=== PATIENT | female | born 1960 | race Caucasian/White ===

== ENCOUNTER 2020-08-01 17:22 | Emergency (ER) | payer MEDICARE, MEDICAID, SELFPAY ==
--- NOTE | ~2020-08-01 | CT_ITS ---
EXAMINATION: CT abdomen pelvis wo con DATE: 08/01/2020 18:55 INDICATION: Left flank pain. TECHNIQUE: Computed tomography (CT) of the abdomen and pelvis was performed without intravenous contr ast. Automated exposure control and iterative reconstruction technique were employed. The dose-length product was 222.74 mGy-cm. COMPARISON: CT abdomen and pelvis 09/08/2012 FINDINGS: The visualized portions of the lung bases demonstrate mild atelectasis. No pleural effusion . The heart size is normal. No pericardial effusion. The liver, gallbladder, spleen, pancreas, adrena l glands, and right kidney are normal. There is mild left hydronephrosis and hydroureter. There is a 2 mm stone in distal left ureter. There are no dilated loops of bowel. The appendix is normal. There are no pathologically enlarged lymph nodes. There is no free intraperitoneal fluid. There is moderate lumbar spondylosis. There is a benign bone island in L5 vertebral body. IMPRESSION: 1. 2 mm stone in distal left ureter with mild left hydronephrosis and hydroureter. Reviewed, dictated and finalized at location A. IMPRESSION: 1. 2 mm stone in distal left ureter with mild left hydronephrosis and hydrouret er.
[2020-08-01 17:23] VITALS: BP 120/76; PULSE 65; RESP 20; TEMP 36.2; O2SAT 99
[2020-08-01 17:57] LABS: Basophils Absolute Auto 0.1 K/mm3 (0.0-0.1); Basophils Percent Auto 0.5 % (0.2-1.2); Eosinophils Percent Auto 0.3 % (0-4.4); Hemoglobin 11.5 g/dL (12.0-15.0); Immature Granulocyte Absolute 0.03 K/mm3 (0.00-0.031); Immature Granulocyte Percent A 0.3 % (0-0.5); Lymphocytes Absolute Auto 2.67 K/mm3 (0.9-3.2); Lymphocytes Percent Auto 27.6 % (18.3-44.2); Mean Corpuscular HGB Conc 32.9 g/dl (32-36); Mean Corpuscular Hemoglobin 32.5 pg (26-34); Mean Corpuscular Volume 98.9 fl (80-100); Mean Platelet Volume 9.6 fl (7.4-10.4); Monocytes Absolute Auto 0.6 K/mm3 (0.1-0.6); Monocytes Percent Auto 6.1 % (2.6-8.5); Neutrophils Absolute Auto 6.3 K/mm3 (1.3-6.7); Neutrophils Percent Auto 65.2 % (45.5-73.1); Platelet Count Result 222 k/mm3 (150-375); Red Blood Count 3.54 M/mm3 (4.2-5.4); White Blood Count 9.7 K/mm3 (4.5-10.0)
[2020-08-01 18:02] LABS: Add Urine Microscopic? YES; Appearance Urine Clear (Clear); Bacteria Urine Trace /hpf; Bilirubin Urine Negative (Negative); Blood Urine 1+ (Negative); Color Urine Straw (Yellow); Glucose Urine UA Negative (Negative); Ketones Urine Trace mg/dL (Negative); Leukocyte Esterase Ur 3+ LEU/UL (Negative); Mucus Urine Rare /lpf; Nitrate Urine Negative (Negative); Protein Urine Negative (Negative); Squamous Epithelial Cell Urine Rare /hpf (Few); Urobilinogen Urine Negative mg/dL (<2.0)
[2020-08-01 18:03] LABS: Specific Grav Ur 1.004 (1.001-1.035)
[2020-08-01 18:16] LABS: Anion Gap 1 mmol/L (8-16); Blood Urea Nitrogen 12 mg/dL (7-17); Carbon Dioxide 27 mmol/L (22-30); Chloride 102 mmol/L (98-107); Estimated CRCL calculation 45 ml/min; Estimated Glomerular Filt Rate 51; Glucose 94 mg/dL (65-105); Potassium 3.1 mmol/L (3.4-5.0); Sodium 130 mmol/L (137-145)
--- NOTE | 2020-08-01 18:51 | ED.FEMALEGU ---
HPI - Female Genitourinary General Chief complaint: Urogenital-Female Stated complaint: unavle to urinate, nausea, back pain Time Seen by Provider: 08/01/20 17:36 Source: patient Mode of arrival: ambulatory Limitations: no limitations History of Present Illness HPI Narrative: This is a 60-year-old female that presents to the emergency department for difficulty urinating today. Reports she feels like she can only get out a small amount of time. Also reports associated left flank pain that radiates to the abdomen. Denies fever, vomiting, or hematuria. Related Data Allergies Allergy/AdvReac Type Severity Reaction Status Date / Time No Known Allergies Allergy Mild Verified 09/29/19 12:29 Review of Systems Review of Systems: Narrative: CONSTITUTIONAL: Denies fever GASTROINTESTINAL: Reports abdominal pain. Denies nausea, vomiting, or diarrhea. GENITOURINARY: Denies dysuria or hematuria. All systems reviewed & are unremarkable except as noted in HPI and below PMFSH Past Medical History Medical History (Updated 08/01/20 @ 19:44 by Radha Golden PA-C) History of rheumatoid arthritis Family History Family History (System 09/29/19 @ 12:29 by Luisa Griffin) Mother Patient's mother is in good health, Onset Age: 74 Father Patient's father is in good health, Onset Age: 81 Sibling Patient's sister is in good health Patient's brother is in good health, Onset Age: 50 Social History Social History (System 09/29/19 @ 12:29 by Luisa Griffin) Alcohol intake: current Gender identity (if verbalized by the patient): Female Exam Narrative: Exam Narrative: GENERAL: Well-appearing, well-nourished, and in no acute distress. HEAD: Normocephalic, atraumatic. EYES: EOMI. CHEST: Clear to auscultation. No respiratory distress. No wheezes rales or rhonchi HEART: Regular rate and rhythm. No murmur heard. Normal peripheral pulses. ABDOMEN: Soft, nontender, nondistended, normal active bowel sounds. No CVA tenderness EXTREMITIES: Normal range of motion. No edema. SKIN: Warm, dry, no rash. NEURO: No focal deficits. Alert and oriented x3. PSYCH: Normal mood and affect Course Vital Signs Vital signs: Vital Signs Temperature 97.2 F L 08/01/20 17:23 Pulse Rate 65 08/01/20 17:23 Respiratory Rate 20 08/01/20 17:23 Blood Pressure 120/76 08/01/20 17:23 Pulse Oximetry 99 08/01/20 17:23 Temperature 97.2 F L 08/01/20 17:23 Pulse Rate 61 08/01/20 19:21 Respiratory Rate 18 08/01/20 19:21 Blood Pressure 114/60 08/01/20 19:21 Pulse Oximetry 100 08/01/20 19:21 MDM - Female Genitourinary MDM Narrative Medical decision making narrative: Patient presents the emergency department for difficulty with urination and left flank pain. She is afebrile and nontoxic-appearing. Vitals are stable. CBC is without leukocytosis. Metabolic panel does show mildly decreased kidney function. Unsure if this is chronic, as I do not have any recent labs to compare this to. Patient was hydrated while in the ED. Also shows mild hypokalemia. Patient given dose of potassium in the ED. UA with possible evidence of urinary tract infection. This will be sent for culture. CT scan of the abdomen and pelvis shows a 2 mm stone in the distal left ureter. Patient updated on case findings. Will be started on oral antibiotic and tamsulosin. Given urine strainer. Patient has prescribed pain medication that she already takes for her chronic pain. She is to follow-up with urology. She was given warnings to return to the ER Lab Data Attestation: I reviewed the patient's lab results. Result diagrams: 08/01/20 17:51 08/01/20 17:51 Labs: Lab Results 08/01/20 08/01/20 08/01/20 Range/Units 17:50 17:51 17:51 WBC 9.7 (4.5-10.0) K/mm3 RBC 3.54 L (4.2-5.4) M/mm3 Hgb 11.5 L (12.0-15.0) g/dL Hct 35.0 L (37.0-47.0) % MCV 98.9 (80-100) fl MCH 32.5 (26-34) pg MCHC 32.9 (32-36)
[2020-08-01] MEDS: SODIUM CHLORIDE 0.9% IV 500 ML 999 ML IV CONT (19:04)
--- NOTE | 2020-08-01 19:11 | PC.NURSE ---
took over care of pt at this time
[2020-08-01 19:21] VITALS: BP 114/60; PULSE 61; RESP 18; O2SAT 100
--- NOTE | 2020-08-01 19:38 | PC.NURSE ---
Pt refusing fentanyl due to pain contract, BAN Marques in room at time and requests administration of tylenol and ondansetron.
[2020-08-01] MEDS: ONDANSETRON INJ 4 MG/2 ML VIAL IV PUSH (19:47)
[2020-08-01] MEDS: POTASSIUM CHLORIDE 20 MEQ TABLET 40 MEQ PO (20:06)
--- NOTE | 2020-08-01 20:09 | PC.NURSE ---
Pt requesting first dose of prescription due to pharmacy being closed and only being able to use specific pharmacy. PA to be notified prior to discharge.
[2020-08-01] MEDS: CEFDINIR 300 MG CAPSULE PO (20:48)
[2020-08-01] MEDS: TAMSULOSIN HCL 0.4 MG CAPSULE PO (20:48)
[2020-08-01 21:24] VITALS: BP 111/69; PULSE 60; RESP 18; O2SAT 100
== END 2020-08-01 21:00 | disposition home or self-care (01) ==
PROVIDERS: Physician Assistant; Emergency Provider Emergency Medicine
DX: N13.2 Hydronephrosis with renal and ureteral calculous obstruction (principal); N30.00 Acute cystitis without hematuria; M06.9 Rheumatoid arthritis, unspecified
CPT/HCPCS: 36415; 74176; 80048; 81001; 85025; 87086; 96361; 96365; 96375; 99284; A9270; J0131; J2405; J7040

== ENCOUNTER 2020-08-02 04:12 | Emergency (ER) | payer MEDICARE, MEDICAID, SELFPAY ==
[2020-08-02] VITALS (7 sets, daily range): BP systolic 99–121; BP diastolic 67–73; PULSE 63–90; RESP 12–19; TEMP 36.9; O2SAT 99–100
--- NOTE | 2020-08-02 04:57 | PC.NURSE ---
Pt attempted to void, pt reports feeling a lot better and now rates pain as a 3/10. Pt reports continuing nausea.
--- NOTE | 2020-08-02 05:21 | ED.NAVMDI ---
HPI - Nausea/Vomiting/Diarrhea General Chief complaint: Nausea/Vomiting/Diarrhea Stated complaint: kidney stones Time Seen by Provider: 08/02/20 05:15 Source: patient Mode of arrival: ambulatory Limitations: no limitations History of Present Illness HPI Narrative: Patient is a 60-year-old female complaining of nausea vomiting, nonbilious nonbloody had approximately 6-8 episodes that started this morning. Patient also complaining of left flank pain, was 8/10, now down to 2 out of 10, started last night. Patient was seen here last night for the same complaint, was diagnosed with a 2 mm kidney stone. Patient states that the only reason she returned is because of the nausea vomiting, she could not keep anything down. Related Data Allergies Allergy/AdvReac Type Severity Reaction Status Date / Time No Known Allergies Allergy Mild Verified 09/29/19 12:29 Review of Systems Review of Systems: All systems reviewed & are unremarkable except as noted in HPI and below Constitutional: Constitutional: Denies body ache(s), Denies chills, Denies excessive sweating, Denies fatigue, Denies fever(s), Denies headache(s), Denies lethargy, Denies malaise, Denies weakness and Denies weight loss Eyes: Eyes: Denies blurry vision, Denies change in vision and Denies loss of vision ENT: Denies dizziness, Denies ear discharge, Denies headache(s), Denies lip swelling, Denies epistaxis, Denies nasal congestion, Denies neck pain, Denies throat swelling and Denies tongue swelling Cardiovascular: Cardiovascular: Denies chest pain, Denies chest pain at rest, Denies chest pain with activity, Denies diaphoresis, Denies rapid heart rate, Denies edema, Denies irregular heart rhythm, Denies lightheadedness, Denies palpitations, Denies dyspnea and Denies dyspnea on exertion Respiratory: Respiratory: Denies chest congestion, Denies cough, Denies hemoptysis, Denies dyspnea and Denies dyspnea on exertion Gastrointestinal: Gastrointestinal: Denies abdominal pain, Denies melena, Denies hematochezia, Denies diarrhea and Denies hematemesis Musculoskeletal: Musculoskeletal: Denies abnormal gait, Denies deformity, Denies joint swelling, Denies limited range of motion, Denies neck pain and Denies numbness Neurologic: Denies Abnormal speech present, Denies abnormal gait, Denies confusion, Denies dizziness, Denies headache(s), Denies focal weakness, Denies loss of vision, Denies numbness, Denies Other visual disturbances, Denies Sensory deficit (Neuro) and Denies weakness Psychiatric: Psychiatric: Denies confusion, Denies depression, Denies auditory hallucinations, Denies homicidal ideation and Denies suicidal ideation Endocrine: Endocrine: Denies cold intolerance, Denies excessive sweating, Denies fatigue, Denies heat intolerance and Denies palpitations Hematologic/Lymphatic: Hematologic/Lymphatic: Denies easy bleeding and Denies easy bruising Allergic/Immunologic: Allergic/Immunologic: Denies lip swelling, Denies throat swelling and Denies tongue swelling PMFSH Past Medical History Medical History History of rheumatoid arthritis Family History Family History Mother Patient's mother is in good health, Onset Age: 74 Father Patient's father is in good health, Onset Age: 81 Sibling Patient's sister is in good health Patient's brother is in good health, Onset Age: 50 Social History Social History Alcohol intake: current Gender identity (if verbalized by the patient): Female Exam Const: General: cooperative, healthy appearing, comfortable, no acute distress, well developed, alert and awake; No confusion Orientation/consciousness: oriented to person, oriented to place, oriented to time, patient oriented x3 and No confusion Limitations: no limitations HENMT: Head: normal to inspection, normocephalic an
[2020-08-02] MEDS: SODIUM CHLORIDE 0.9% IV 1,000 ML 999 ML IV CONT (05:28)
[2020-08-02] MEDS: PROMETHAZINE HCL 25 MG/ML AMPUL 12.5 MG IV PUSH (05:29)
[2020-08-02 05:41] LABS: Basophils Percent Auto 0.2 % (0.2-1.2); Eosinophils Percent Auto 0.1 % (0-4.4); Hematocrit 33.2 % (37.0-47.0); Hemoglobin 11.7 g/dL (12.0-15.0); Immature Granulocyte Absolute 0.03 K/mm3 (0.00-0.031); Immature Granulocyte Percent A 0.4 % (0-0.5); Lymphocytes Absolute Auto 1.48 K/mm3 (0.9-3.2); Lymphocytes Percent Auto 17.5 % (18.3-44.2); Mean Corpuscular HGB Conc 35.2 g/dl (32-36); Mean Corpuscular Hemoglobin 32.5 pg (26-34); Mean Corpuscular Volume 92.2 fl (80-100); Mean Platelet Volume 9.8 fl (7.4-10.4); Monocytes Absolute Auto 0.3 K/mm3 (0.1-0.6); Neutrophils Absolute Auto 6.6 K/mm3 (1.3-6.7); Neutrophils Percent Auto 77.8 % (45.5-73.1); Platelet Count Result 219 k/mm3 (150-375); Red Cell Distribution Width 11.8 % (11.5-14.5); White Blood Count 8.4 K/mm3 (4.5-10.0)
[2020-08-02 05:54] LABS: Alanine Aminotransferase 13 U/L (4-35); Albumin Level 4.1 g/dL (3.5-5.1); Alkaline Phosphatase 36 U/L (38-126); Anion Gap 3 mmol/L (8-16); Aspartate Amino Transferase 29 U/L (14-36); Bilirubin,Total 0.6 mg/dL (0.2-1.3); Blood Urea Nitrogen 9 mg/dL (7-17); Calcium 8.5 mg/dL (8.4-10.2); Carbon Dioxide 22 mmol/L (22-30); Chloride 103 mmol/L (98-107); Estimated Glomerular Filt Rate 57; Glucose 96 mg/dL (65-105); Lipase 114 U/L (23-300); Sodium 128 mmol/L (137-145)
== END 2020-08-02 07:10 | disposition home or self-care (01) ==
PROVIDERS: Emergency Provider Emergency Medicine
DX: N13.9 Obstructive and reflux uropathy, unspecified (principal); R11.2 Nausea with vomiting, unspecified; M06.9 Rheumatoid arthritis, unspecified
CPT/HCPCS: 36415; 80053; 83690; 85025; 96361; 96374; 99284; J2550; J7030

== ENCOUNTER 2020-11-10 14:31 | Outpatient (CLI) | payer OTHER, SELFPAY ==
--- NOTE | ~2020-11-10 | XR_ITS ---
EXAMINATION: XR hand LT min 3V, XR hand RT min 3V DATE: 11/10/2020 15:30 INDICATION: Pain in the joints of the bilateral hands post fall 3 weeks prior. TECHNIQUE: 1. Posteroanterior, oblique and lateral views of the left hand were obtained. 2. Posteroanterior, oblique and lateral views of the right hand were obtained. COMPARISON: Left and right hand radiographs dated 11/11/2017 FINDINGS: Diffuse osteopenia at the bilateral hands and wrists. No acute fractures. Again seen is ulnar deviati on at the bilateral second-fifth metacarpophalangeal joints with moderate to severe associated joint space narrowing which appears relatively uniform suggesting possibility of inflammatory arthritis suc h as rheumatoid or lupus. Chronic erosions are seen at the heads of the bilateral second metacarpals. Additional mild to moderate joint space narrowing at multiple bilateral interphalangeal joints. Contract Designer haley linear deformity at the right fourth digit. Moderate joint space narrowing at the bilateral wrist and distal radioulnar joints. Likely additional erosions at the distal margins of the left and right ulna, distal left radius and left scaphoid. Mild joint space narrowing at the bilateral triscaphe kirsten ints. IMPRESSION: 1. No acute osseous abnormality bilateral hands or wrists. 2. Minimal change in moderate to severe arthritic changes at the bilateral hands with metacarpophalan geal predominance where the joint space narrowing appears relatively uniform and scattered erosions a lso suggesting an inflammatory arthritis most likely rheumatoid. The ulnar deviation at the metacarpo phalangeal joints however also raises the possibility of lupus. Reviewed, dictated and finalized at location A. IMPRESSION: 1. No acute osseous abnormality bilateral hands or wrists. 2. Minimal change in moderate to severe arthritic changes at the bilateral hand s with metacarpophalangeal predominance where the joint space narrowing appears relatively uniform and scattered erosions also suggesting an inflammatory arth ritis most likely rheumatoid. The ulnar deviation at the metacarpophalangeal kirsten ints however also raises the possibility of lupus.
--- NOTE | ~2020-11-10 | XR_ITS ---
XR lumbar spine 2-3V DATE: 11/10/2020 15:30 INDICATION: Lumbar pain/radiculopathy TECHNIQUE: AP, lateral, coned lateral lumbosacral views COMPARISON: 11/11/2017 lumbar spine FINDINGS: There is osteopenia. There is levoscoliosis of the thoracolumbar spine. There is degenerative change at the apophyseal joints with associated grade 1 anterolisthesis at L3-4 and L4-5, stable since 11/11/2017. No fracture or bone destruction is evident. The lumbar pedicles are intact. There is moderate degener ative disc disease at the L1-2, L2-3 and L3-4 interspaces and to a greater extent L4-5. L5-S1 intersp tanisha appears well preserved. The sacroiliac joints are intact. IMPRESSION: Osteopenia Mild levoscoliosis Degenerative change at the apophyseal joints with associated grade 1 anterolisthesis, chronic, at L3- 4 and L4-5 Moderate degenerative disc disease Reviewed, dictated and finalized at location B. IMPRESSION: Osteopenia Mild levoscoliosis Degenerative change at the apophyseal joints with associated grade 1 anterolist hesis, chronic, at L3-4 and L4-5 Moderate degenerative disc disease
== END 2020-11-10 14:32 | disposition home or self-care (01) ==
DX: M19.90 Unspecified osteoarthritis, unspecified site (principal); Z51.81 Encounter for therapeutic drug level monitoring; Z79.899 Other long term (current) drug therapy; M41.9 Scoliosis, unspecified; M47.816 Spondylosis without myelopathy or radiculopathy, lumbar region
CPT/HCPCS: 72100; 73130

== ENCOUNTER 2021-03-13 15:33 | Observation (INO) | payer OTHER, SELFPAY ==
[2021-03-13] VITALS (26 sets, daily range): BP systolic 100–124; BP diastolic 65–93; PULSE 48–88; RESP 12–23; TEMP 36.6; O2SAT 90–100
--- NOTE | ~2021-03-13 | XR_ITS ---
EXAMINATION: XR chest 2V EXAM DATE: 03/13/2021 17:50 INDICATION: Cough/sob,Fever X 5 WKS. TECHNIQUE: Frontal and lateral projections of the chest obtained and reviewed. There is no prior flaco dy for comparison. FINDINGS: There is moderate to large amount of left-sided and small to moderate amount of right-sided ill-defined acute airspace disease most likely multifocal pneumonia. There is no pneumothorax suspec vish. There are no pleural effusions. Cardiomediastinal silhouette is normal. There are no osseous abn ormalities identified. IMPRESSION: Bilateral multifocal pneumonia. Reviewed, dictated and finalized at location G. 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
--- NOTE | 2021-03-13 15:47 | ECG_ITS ---
Measurements Intervals [place] Rate: 72 P: 3 MA: 147 QRS: -16 QRSD: 82 T: 2 QT: 386 QTc: 424 Interpretive Statements SINUS RHYTHM EARLY PRECORDIAL R/S TRANSITION LEFT VENTRICULAR HYPERTROPHY MINIMAL Q WAVES- HIGH LATERAL LEADS BORDERLINE T WAVE ABNORMALITY- INFERIOR LEADS BORDERLINE ECG Electronically Signed On 03-13-2021 16:32:43 [employer] by Juancarlos Mckeon D.O.
[2021-03-13 17:26] LABS: Basophils Percent Auto 0.3 % (0.2-1.2); Eosinophils Percent Auto 0.1 % (0-4.4); Hematocrit 33.4 % (37.0-47.0); Hemoglobin 11.2 g/dL (12.0-15.0); Immature Granulocyte Absolute 0.12 K/mm3 (0.00-0.031); Immature Granulocyte Percent A 1.7 % (0-0.5); Lymphocytes Absolute Auto 1.54 K/mm3 (0.9-3.2); Lymphocytes Percent Auto 22.4 % (18.3-44.2); Mean Corpuscular HGB Conc 33.5 g/dl (32-36); Mean Corpuscular Hemoglobin 32.5 pg (26-34); Mean Corpuscular Volume 96.8 fl (80-100); Mean Platelet Volume 9.5 fl (7.4-10.4); Monocytes Absolute Auto 0.6 K/mm3 (0.1-0.6); Monocytes Percent Auto 8.2 % (2.6-8.5); Neutrophils Absolute Auto 4.6 K/mm3 (1.3-6.7); Neutrophils Percent Auto 67.3 % (45.5-73.1); Platelet Count Result 301 k/mm3 (150-375); Red Blood Count 3.45 M/mm3 (4.2-5.4); Red Cell Distribution Width 12.4 % (11.5-14.5); White Blood Count 6.9 K/mm3 (4.5-10.0)
--- NOTE | 2021-03-13 17:38 | ED.URI ---
HPI - URI/Sore Throat General Chief Complaint: Upper Respiratory Infection Stated Complaint: ?COVID Time Seen by Provider: 03/13/21 16:28 Source: patient Mode of arrival: ambulatory Limitations: no limitations History of Present Illness HPI Narrative: 60-year-old female Here because of a cough for a month Also her stools look yellow She said that she was initially sick for a couple of weeks, but that improved, but then about 3 days ago she started again having a cough productive of small amounts of greenish phlegm and a fever She says she did several negative Covid tests Today she thought her home pulse oximeter was reading 88 and her doctor told her to come to the ER, however here she is initially 94% to 97% when first seen She used a old albuterol inhaler today with some relief Related Data Home Medications Medication Instructions Recorded Confirmed alprazolam 0.25 mg PO TID 03/13/21 atorvastatin 20 mg PO HS 03/13/21 gabapentin 300 mg PO BID 03/13/21 hydrocodone-acetaminophen 1 tablet PO Q8H PRN 03/13/21 methylprednisolone 4 mg PO BID 03/13/21 trazodone 150 mg PO HS 03/13/21 zolpidem 10 mg PO HS PRN 03/13/21 Allergies Allergy/AdvReac Type Severity Reaction Status Date / Time No Known Allergies Allergy Mild Verified 03/13/21 19:24 Review of Systems Review of Systems: All systems reviewed & are unremarkable except as noted in HPI and below Constitutional: Constitutional: Reports no additional constitutional complaints, Denies chills, Reports fatigue, Denies fever(s), Denies headache(s) and Reports weakness Eyes: Eyes: Reports no additional eye complaints and Denies change in vision ENT: Denies headache(s) and Denies sore throat Cardiovascular: Cardiovascular: Denies chest pain and Denies dyspnea Respiratory: Respiratory: Reports chest congestion, Reports cough and Reports dyspnea Gastrointestinal: Gastrointestinal: Reports as per HPI, Denies abdominal pain, Reports constipation and Denies vomiting Genitourinary: Genitourinary: Denies urinary frequency and Denies dysuria Musculoskeletal: Musculoskeletal: Reports myalgias, Denies deformity, Reports arthralgias, Reports joint swelling and Denies numbness Integumentary/Breasts: Skin/Breast: Denies rash and Denies wounds Neurologic: Denies headache(s), Denies focal weakness and Denies numbness Psychiatric: Psychiatric: Reports no additional psychiatric complaints Endocrine: Endocrine: Reports no additional endocrine complaints Hematologic/Lymphatic: Hematologic/Lymphatic: Reports no additional hematologic/lymphatic complaints Allergic/Immunologic: Allergic/Immunologic: Reports no additional allergic/immunologic complaints [facility] Past Medical History Medical History History of rheumatoid arthritis Family History Family History Mother Patient's mother is in good health, Onset Age: 74 Father Patient's father is in good health, Onset Age: 81 Sibling Patient's sister is in good health Patient's brother is in good health, Onset Age: 50 Social History Social History Alcohol intake: current Gender identity (if verbalized by the patient): Female Exam Const: General: cooperative, no acute distress and alert Orientation/consciousness: patient oriented x3 (alert) HENMT: Head: normal to inspection, normocephalic and atraumatic Ears: external ears normal General nose exam: no epistaxis Mouth: Yes moist mucous membranes Eyes: Conjunctivae: conjunctivae normal EOM: EOMs intact bilaterally Neck: Neck: normal visual inspection, supple and no JVD Resp: Effort & Inspection: normal respiratory effort and not labored Auscultation: crackles, no rales, no rhonchi, no wheezes and other (BS =) Cardio: Rate: regular rate Rhythm: regular rhythm Heart sounds: no murmurs GI: GI Palp
[2021-03-13 19:07] LABS: Basophils Percent Auto 0.3 % (0.2-1.2); Eosinophils Percent Auto 0.1 % (0-4.4); Hematocrit 35.7 % (37.0-47.0); Hemoglobin 11.7 g/dL (12.0-15.0); Immature Granulocyte Absolute 0.14 K/mm3 (0.00-0.031); Lymphocytes Absolute Auto 1.92 K/mm3 (0.9-3.2); Lymphocytes Percent Auto 27.2 % (18.3-44.2); Mean Corpuscular HGB Conc 32.8 g/dl (32-36); Mean Corpuscular Hemoglobin 32.3 pg (26-34); Mean Corpuscular Volume 98.6 fl (80-100); Mean Platelet Volume 9.7 fl (7.4-10.4); Monocytes Absolute Auto 0.6 K/mm3 (0.1-0.6); Monocytes Percent Auto 8.4 % (2.6-8.5); Neutrophils Absolute Auto 4.4 K/mm3 (1.3-6.7); Platelet Count Result 308 k/mm3 (150-375); Red Blood Count 3.62 M/mm3 (4.2-5.4); Red Cell Distribution Width 12.5 % (11.5-14.5); White Blood Count 7.1 K/mm3 (4.5-10.0)
[2021-03-13 19:19] LABS: Lactate Dehydrogenase 948 U/L (313-618)
[2021-03-13] MEDS: DOXYCYCLINE IV 100 MG in SODIUM CHLORIDE 0.9% IV 100 ML IVPB (19:24)
[2021-03-13 19:40] LABS: Alanine Aminotransferase 23 U/L (4-35); Albumin Level 3.5 g/dL (3.5-5.1); Alkaline Phosphatase 66 U/L (38-126); Anion Gap 2 mmol/L (8-16); Aspartate Amino Transferase 37 U/L (14-36); Bilirubin,Total 0.5 mg/dL (0.2-1.3); Blood Urea Nitrogen 7 mg/dL (7-17); Calcium 8.4 mg/dL (8.4-10.2); Carbon Dioxide 28 mmol/L (22-30); Chloride 109 mmol/L (98-107); Estimated CRCL calculation 93 ml/min; Estimated Glomerular Filt Rate > 60; Glucose 117 mg/dL (65-110); Potassium 3.6 mmol/L (3.4-5.0); Sodium 139 mmol/L (137-145)
[2021-03-13 20:45] LABS: SARS-CoV-2 RNA PCR Positive
[2021-03-13] MEDS: ALBUTEROL SULFATE (*SP) INHALER 4 PUFF INHALATION (22:26)
[2021-03-13] MEDS: LACTATED RINGERS 1,000 ML 999 ML IV CONT (23:29)
[2021-03-14] VITALS (12 sets, daily range): BP systolic 95–128; BP diastolic 64–78; PULSE 53–92; RESP 16–20; TEMP 36–36.7; O2SAT 93–98; BMI 24.2
[2021-03-14] MEDS: LACTATED RINGERS 1,000 ML 125 ML IV CONT ×2 (01:29→15:53)
--- NOTE | 2021-03-14 02:27 | PM.IMHP ---
H&P: HPI History of Present Illness Date/Time: 03/14/21 05:40 Chief Complaint: Cold-like symptoms Narrative: 60-year-old female with past medical history of rheumatoid arthritis, anxiety, insomnia, vitamin-D deficiency and hyperlipidemia who presented to the ER via private vehicle due to cold-like symptoms for 5 weeks. The patient reports she initially began having symptoms fiber 6? weeks ago (according to external medication history she was prescribed azithromycin 02/27/2021) with a dry cough, nausea and diarrhea. She thought she may have had COVID at that time but did not get tested. She cough lasted 3 or 4 days and nausea lasted about 7-10 days. She reports that she is still having occasional diarrhea. 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 She said she had not been on her Relistor for several months due to insurance not paying for the medications. She has not felt constipated. She reports she has been having some occasional incontinent stools at night for the last couple of weeks. She had been treated with azithromycin for her respiratory symptoms several weeks ago. She reports that the stools are yellow in color. She has not had a fever since that time. She reported that initially her symptoms had gotten better but she started having more upper respiratory symptoms for the last 3 days. She denies any chest pain. She reports that she is feels as if she cannot catch her breath. She has had a cough is productive of green to yellowish sputum. She had smoked a pack of cigarettes per day on and off for a total of about 20 years of smoking. She then switched to a nicotine inhaler. However, several years ago she switched to E cigarettes. She is continuing to smoke E cigarettes and when I arrived in the room the patient had a vaping cigarette in her hand and had been using it in the room. She denies any loss of sense of taste or smell. Reportedly in the ER the patient was not hypoxic until they got her up to ambulate. When the ambulator she briefly dropped to 87%. When she was at rest she was not hypoxic. However, the patient then proceeded to take her Xanax, melatonin, trazodone and Ambien. After she had taken all of these medications when she would fall asleep her oxygen saturations would drop to 88%. In the ER was also noted that the patient would have brief episodes of bradycardia. I suspect that some of the patient's bradycardia is occurring when she falls asleep. Given her multiple medications given number separate admission having some mild apnea as she was snoring when I entered the room. She reports that she has chronic insomnia and cannot sleep without her multiple medications. She told nursing staff that even after she had taken those medications that she probably would not sleep. When the patient stood up in the ER to ambulate she did drop her blood pressures. She received 1 L fluid bolus. The patient has not been hypotensive since arrival to the medical floor. In the ER staff noted that the patient was having episodes of bradycardia with a heart rate as low as 40. Since she has arrived on the medical floor her rate was ranged between 51 and 92. Her pattern is consistent with sinus bradycardia. She denies feeling lightheaded with standing. She did have a low-grade temperature in the last 3 days. She reported that she had several negative COVID test when she was initially ill but has not taken a COVID test recently and to the 1 given in the ER. She denies any recent ill contacts. She lives at home with her significant other/common-law of 20 years. She is vaccinated against COVID-19. She received her Pfizer booster in January. Review of Systems Review of Systems: 12 systems were reviewed with pertinent positives and negatives per HPI. Except as documented in the HPI, all other systems were reviewed and are negative. [facility] Past Medical History Medical History (Updated 03/14/21 @ 10:09 by Rahda Arreola
--- NOTE | 2021-03-14 04:23 | ADMGEN ---
This patient, Bibiana Lyman, was admitted to 3 [facility] Surg Room 330-01. Patient/family oriented to hospital policies and general routines including ID bracelet, bed and alarms, visiting hours, pain management, procedures, bathroom and other care routines, personal items, smoking policy, room service/diet, and visiting hours. Information on how to activate the Rapid Response Team has been discussed. Patient/Family are encouraged to report perceived risks to care and to ask questions if they do not understand what they are told or what they should do.
--- NOTE | 2021-03-14 06:00 | ECHO_ITS ---
Patient Info Name: Bibiana Lyman Age: 60 years : 1960 Gender: Female Ht: 66 in Wt: 143 lbs BSA: 1.74 m2 HR: 87 bpm BP: 109 / 88 mmHg Exam Date: 03/14/2021 9:05 AM Exam Location: [facility] Patient Status: Outpatient Admit Date: 03/13/2021 Staff Ordering Physician: Dionicio Rogers MD [employer] Concierge: Jose Guadalupe Prieto RDCS, RT Attending Provider: Chiquita Cortez DO Referring Physician: Ken SHARP; Exam Type: CA echo doppler color flow Study Info Indications I50.9 - Heart failure, unspecified Summary 1. Normal LV size and wall thickness, normal LV systolic and diastolic function, LVEF 65-70%. Normal global longitudinal strain, -21%. No significant valvular abnormality. Trivial TR, unable to assess RVSP due to inadequate TR jet. Dilated IVC without respiratory collapse. Left Ventricle Left ventricular chamber dimension is normal. Left ventricular systolic function is normal, estimated at 65-70%. There is no increased left ventricular wall thickness. The left ventricular diastolic function is normal. Global longitudinal strain is normal at -21 %. Left Atria Left atrial chamber dimension is normal. Right Atria Right atrial chamber dimension is normal. Aortic Valve The aortic valve is normal. There is no aortic valve stenosis. Pulmonic Valve The pulmonic valve is normal. Mitral Valve The mitral valve has normal leaflets. There is no mitral valve regurgitation. Tricuspid Valve The tricuspid valve leaflets are normal. There is trace tricuspid valve regurgitation. Pericardium/Pleural The pericardium appears normal. Inferior Vena Cava Dilated inferior vena cava with <50% collapse upon inspiration consistent with elevated right atrial pressure, 15 mmHg. Left Ventricular Outflow Tract Name Value Normal LVOT 2D LVOT Diameter 2.1 cm LVOT Doppler LVOT Peak Gradient 7 mmHg LVOT Mean Gradient 4 mmHg LVOT VTI 24 cm LVOT VTI/AV VTI Ratio 0.7 LVOT Stroke Volume 82 ml LVOT CO 6.9 l/min LVOT CI 4.0 l/min/m2 Mitral Valve Name Value Normal MV Doppler MV Decel [place] 407 cm/s2 MV PHT 69 ms MV Area (PHT) 3.2 cm2 4.0-5.0 MV Diastolic Function MV E Peak Velocity 96 cm/s MV A Peak Velocity 70 cm/s MV E/A 1.4 MV Decel Time 236 ms MV Annular TDI MV E/e' (Septal
[2021-03-14] MEDS: DOXYCYCLINE IV 100 MG in SODIUM CHLORIDE 0.9% IV 100 ML IVPB (07:54)
[2021-03-14] MEDS: ENOXAPARIN 40 MG/0.4 ML SYRINGE SUB-Q (08:31)
[2021-03-14] MEDS: ALBUTEROL SULFATE (*SP) AEROSOL 1 PUFF 2 PUFF INHALATION ×4 (08:51→20:00)
[2021-03-14 09:56] LABS: INR 1.1
[2021-03-14] MEDS: ALPRAZolam (*CRX) 0.25 MG TABLET PO ×2 (12:16→17:52)
[2021-03-14] MEDS: MORPHINE SULFATE (*CRX) 30 MG TABCR PO ×2 (12:16→18:11)
[2021-03-14] MEDS: ASPIRIN 81 MG ENTERIC TABLET PO (12:17)
[2021-03-14] MEDS: MELOXICAM 7.5 MG TABLET 15 MG PO ×2 (12:17→17:53)
[2021-03-14] MEDS: GABAPENTIN 300 MG CAPSULE PO (12:17)
[2021-03-14] MEDS: REMDESIVIR 200 MG/NS 250 ML 200 MG/250 ML BAG 250 MG IVPB (12:29)
--- NOTE | 2021-03-14 17:54 | PC.NURSE ---
PATIENT REFUSING TO TAKE GABAPENTIN UNTIL BEDTIME
--- NOTE | 2021-03-14 18:05 | PC.NURSE ---
PER DR. EMMANUEL SCHRADER TO RESUME PT MEDS AT SPECIFIC TIMES SHE TAKES THEM AT HOME.
--- NOTE | 2021-03-14 18:19 | PM.IMPN ---
Progress Note: A&P Assessment and Plan (1) Pneumonia due to COVID-19 virus: Code(s): U07.1 - COVID-19; J12.82 - Pneumonia due to coronavirus disease 2019 Status: Acute Assessment and Plan: Pneumonia due to COVID-19. Continued exam it was on and remdesivir. Patient has no per oxygen requirement at home. Due to history of chronic rheumatoid arthritis, patient is presumed to be immunosuppressant. She has been on chronic steroids. Will go ahead with treatment for COVID-19 pneumonia. Home medications were restarted. (2) Low blood pressure: Qualifiers: Hypotension type: unspecified hypotension type Qualified Code(s): I95.9 - Hypotension, unspecified Code(s): I95.9 - Hypotension, unspecified Status: Acute Assessment and Plan: Chronic hypotension. Patient does not appear to be in any shock. (3) Bradycardia, sinus: Code(s): R00.1 - Bradycardia, unspecified Status: Acute Assessment and Plan: Continue close monitoring. Additional Plan Patient has pneumonia due to COVID 19. She only had transient hypoxia with exertion. She did have some hypoxia with sleeping I suspect that this is due to her polypharmacy at night. Will continue p.r.n. supplemental oxygen. Patient was started on Decadron in the ER. The patient is already on prednisone at home due to chronic rheumatoid arthritis. The ER had place the patient on antibiotics initially for possible bacterial component of the pneumonia. However patient's white count is normal. She is afebrile. I suspect that the patient's prior symptoms may have been unrelated to her current COVID infection and this is truly a new COVID. Will place patient on Remdesivir. Given hypoxia with sleep and snoring will check ApneaLink. The patient had some low blood pressures in the ER but I suspect this was due to her position changes. She did receive IV fluids and her hypotension has resolved. Echocardiogram has been ordered to rule problems with cardiac structure and function. Patient is on telemetry. Patient has been admitted as observation status. Subjective Date/time seen: 03/14/21 15:00 S: Patient was seen examined at the bedside. She denies any complaints. She is asking questions about her EKG. Echo ordered. Review of Systems Review of Systems: CONSTITUTIONAL: Negative for any fevers, chills, night sweats, tiredness, fatigue, malaise, anorexia or weight loss. CARDIOVASCULAR: Negative for chest pain, palpitations, dizziness, orthopnea or lower extremity edema. RESPIRATORY: Negative for shortness of breath, cough, wheezing, sputum. GENITOURINARY: Negative for frequency, nocturia, dysuria, hematuria. GYNECOLOGIC: Negative for abnormal bleeding. HEMATOLOGIC: Negative for any abnormal bleeding or bruising. MUSCULOSKELETAL: Negative for joint swelling, stiffness or pain. SKIN: Negative for rashes, eruptions, lesions or dryness. NEUROLOGIC: Negative for any focal neurologic complaints. PSYCHIATRIC: Negative for anxiety, panic, depression. Exam Narrative: PHYSICAL EXAM: WEIGHT 65 kg BMI 23.1 General: No acute distress, well-developed well-nourished HEENT: Multiple veneers and crowns, mucous membranes are moist, no oral pharyngeal erythema, no scleral icterus Respiratory: Clear to auscultation bilaterally, no increased work of breathing Cardiovascular: Regular rate, bradycardic, 2+ bilateral radial pedal pulses Gastrointestinal: Soft, nontender, nondistended, positive bowel sounds Skin: Generalized pallor, non jaundice, cool to touch Musculoskeletal: No clubbing, cyanosis or edema, marked ulnar deviation of bilateral hands left greater than right Neurological: Alert and oriented, speech is clear, no facial asymmetry Psychiatric: Appropriate mood and affect, pleasant and cooperative : Deferred Hematologic/lymphatic: No anterior cervical lymphadenopathy, no petechiae, no bruising Objective Data Vital Signs Vital Sign
[2021-03-14] MEDS: guaiFENesin 12 HR 600 MG TABCR 1200 MG PO (20:24)
[2021-03-14] MEDS: ATORVASTATIN 20 MG TABLET PO (20:27)
[2021-03-14] MEDS: GABAPENTIN 300 MG CAPSULE 600 MG PO (20:27)
[2021-03-14] MEDS: traZODone HCL 50 MG TABLET 150 MG PO (20:28)
[2021-03-14] MEDS: ZOLPIDEM TARTRATE (*CRX) 5 MG TABLET 10 MG PO (22:53)
[2021-03-15] MEDS: LACTATED RINGERS 1,000 ML 125 ML IV CONT (00:24)
--- NOTE | 2021-03-15 01:34 | PCRCNOTE ---
Patient refused the apnea link stating her primary care physician suggested she may have sleep apnea, then said she thinks she just has a mild case of it and that she would be fine.
[2021-03-15 05:40] VITALS: BP 117/86; PULSE 61; RESP 17; TEMP 36.6; O2SAT 97
[2021-03-15 07:22] LABS: Alanine Aminotransferase 19 U/L (4-35); Estimated CRCL calculation 79 ml/min; Estimated Glomerular Filt Rate > 60
[2021-03-15 07:23] LABS: INR 1.2; Prothrombin Time 14.8 Seconds (11.1-14.7)
[2021-03-15] MEDS: MORPHINE SULFATE (*CRX) 30 MG TABCR PO (08:42)
[2021-03-15] MEDS: ENOXAPARIN 40 MG/0.4 ML SYRINGE SUB-Q (08:42)
[2021-03-15] MEDS: MELOXICAM 7.5 MG TABLET 15 MG PO (08:42)
[2021-03-15] MEDS: GABAPENTIN 300 MG CAPSULE PO (08:42)
[2021-03-15] MEDS: ASPIRIN 81 MG ENTERIC TABLET PO (08:42)
[2021-03-15] MEDS: ALPRAZolam (*CRX) 0.25 MG TABLET PO (08:42)
[2021-03-15] MEDS: ALBUTEROL SULFATE (*SP) AEROSOL 1 PUFF 2 PUFF INHALATION (08:50)
[2021-03-15 09:12] VITALS: BP 118/53; PULSE 82; RESP 18; TEMP 36.2; O2SAT 95
[2021-03-15] MEDS: REMDESIVIR 100 MG/NS 250 ML 100 MG/250 ML BAG 250 MG IVPB (10:27)
--- NOTE | 2021-03-15 10:51 | PM.DS ---
DS: Admitting Diagnosis Discharge Date 03/15/2021 Admitting Diagnosis (1) Pneumonia due to COVID-19 virus: Code(s): U07.1 - COVID-19; J12.82 - Pneumonia due to coronavirus disease 2018 Status: Acute (2) Low blood pressure: Qualifiers: Hypotension type: unspecified hypotension type Qualified Code(s): I95.9 - Hypotension, unspecified Code(s): I95.9 - Hypotension, unspecified Status: Acute (3) Bradycardia, sinus: Code(s): R00.1 - Bradycardia, unspecified Status: Acute DS: Discharge Diagnosis Discharge Diagnosis (1) Pneumonia due to COVID-19 virus: Code(s): U07.1 - COVID-19; J12.82 - Pneumonia due to coronavirus disease 2018 Status: Acute Assessment and Plan: Pneumonia due to COVID-19. Continued exam it was on and remdesivir. Patient has no per oxygen requirement at home. Due to history of chronic rheumatoid arthritis, patient is presumed to be immunosuppressant. She has been on chronic steroids. Will go ahead with treatment for COVID-19 pneumonia. Home medications were restarted. (2) Low blood pressure: Qualifiers: Hypotension type: unspecified hypotension type Qualified Code(s): I95.9 - Hypotension, unspecified Code(s): I95.9 - Hypotension, unspecified Status: Acute Assessment and Plan: Chronic hypotension. Patient does not appear to be in any shock. (3) Bradycardia, sinus: Code(s): R00.1 - Bradycardia, unspecified Status: Acute Assessment and Plan: Continue close monitoring. DS: Summary Hospital Course Reason for hospitalization: Cold-like symptoms Hospital Course: Please refer to admission H&P. Briefly, this is a 60-year-old female with past medical history of rheumatoid arthritis, anxiety, insomnia, vitamin-D deficiency and hyperlipidemia who presented to the ER via private vehicle due to cold-like symptoms for 5 weeks. The patient reports she initially began having symptoms fiber 6? weeks ago (according to external medication history she was prescribed azithromycin 02/27/2021) with a dry cough, nausea and diarrhea. She thought she may have had COVID at that time but did not get tested. She cough lasted 3 or 4 days and nausea lasted about 7-10 days. She reports that she is still having occasional diarrhea. 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 She said she had not been on her Relistor for several months due to insurance not paying for the medications. She has not felt constipated. She reports she has been having some occasional incontinent stools at night for the last couple of weeks. She had been treated with azithromycin for her respiratory symptoms several weeks ago. She reports that the stools are yellow in color. She has not had a fever since that time. She reported that initially her symptoms had gotten better but she started having more upper respiratory symptoms for the last 3 days. She denies any chest pain. She reports that she is feels as if she cannot catch her breath. She has had a cough is productive of green to yellowish sputum. She had smoked a pack of cigarettes per day on and off for a total of about 20 years of smoking. She then switched to a nicotine inhaler. However, several years ago she switched to E cigarettes. She is continuing to smoke E cigarettes and when I arrived in the room the patient had a vaping cigarette in her hand and had been using it in the room. She denies any loss of sense of taste or smell. Reportedly in the ER the patient was not hypoxic until they got her up to ambulate. When the ambulator she briefly dropped to 87%. When she was at rest she was not hypoxic. However, the patient then proceeded to take her Xanax, melatonin, trazodone and Ambien. After she had taken all of these medications when she would fall asleep her oxygen saturations would drop to 88%. In the ER was also noted that the patient would have brief episodes of bradycardia. I s
[2021-03-15] MEDS: HYDROcodone/acetaminophen (*CRX) 5-325 MG TABLET 1 TAB PO (11:05)
== END 2021-03-15 12:25 | disposition home or self-care (01) ==
LOC: ANHED 23:20 → ANH3MEDSUR 03-14 08:26
PROVIDERS: Admitting Provider Internal Medicine; Emergency Provider Emergency Medicine; PCP Family Medicine; Visit Provider Internal Medicine
DX: U07.1 COVID-19 (principal); J12.82 Pneumonia due to coronavirus disease 2019; R09.02 Hypoxemia; I95.9 Hypotension, unspecified; R00.1 Bradycardia, unspecified; M06.9 Rheumatoid arthritis, unspecified; F41.8 Other specified anxiety disorders; F17.290 Nicotine dependence, other tobacco product, uncomplicated; Z79.82 Long term (current) use of aspirin
CPT/HCPCS: 36415; 71046; 80053; 82565; 82728; 83615; 84460; 85025; 85610; 87804; 93005; 93306; 94640; 96361; 96365; 96367; 96372; 96375; 96376; 99285; A9270; C9803; G0378; J0456; J0696; J1100; J1650; J7120; U0003; U0005

== ENCOUNTER 2021-09-23 13:16 | Emergency (ER) | payer OTHER, SELFPAY ==
--- NOTE | 2021-09-23 13:21 | ED.WOUNDLAC ---
HPI - Wound/Laceration General Chief Complaint: Wound/Laceration Stated Complaint: toe blister Time Seen by Provider: 09/23/21 13:28 Source: patient, RN notes reviewed and old records reviewed Mode of arrival: ambulatory Limitations: no limitations History of Present Illness HPI narrative: 61-year-old female presents to the [facility] with redness and swelling to the left great toe. patient states she has been trying to treat a wart to the bottom of the toe for a while. States redness and swelling started 4 to 5 days ago and just keeps increasing. No other treatment prior to arrival. Related Data Home Medications Medication Instructions Recorded Confirmed alprazolam 0.25 mg tablet 0.25 mg PO TID 03/13/21 09/23/21 atorvastatin 20 mg tablet 20 mg PO HS 03/13/21 09/23/21 gabapentin 300 mg tablet 300 mg PO BID 03/13/21 09/23/21 hydrocodone 5 mg-acetaminophen 325 1 tablet PO Q8H PRN Pain, Moderate 03/13/21 09/23/21 mg tablet methylprednisolone 4 mg tablet 4 mg PO BID 03/13/21 09/23/21 trazodone 150 mg tablet 150 mg PO HS 03/13/21 09/23/21 zolpidem 10 mg tablet 10 mg PO HS PRN sleep 03/13/21 09/23/21 aspirin 81 mg tablet,delayed 81 mg PO DAILY 03/14/21 09/23/21 release ergocalciferol (vitamin D2) 1,250 1,250 mcg PO WEEKLY 03/14/21 09/23/21 mcg (50,000 unit) capsule meloxicam 15 mg tablet 15 mg PO BID 03/14/21 09/23/21 methylnaltrexone 150 mg tablet 150 mg PO PRN 03/14/21 09/23/21 (Relistor) morphine 30 mg tablet,extended 30 mg PO BID 03/14/21 09/23/21 release ondansetron 4 mg disintegrating 4 mg PO TID 03/14/21 09/23/21 tablet leflunomide 20 mg tablet 20 mg PO DAILY 09/23/21 09/23/21 pantoprazole 40 mg tablet,delayed 40 mg PO DAILY 09/23/21 09/23/21 release Allergies Allergy/AdvReac Type Severity Reaction Status Date / Time No Known Allergies Allergy Mild Verified 09/23/21 13:20 Review of Systems Review of Systems: All systems reviewed & are unremarkable except as noted in HPI and below Constitutional: Constitutional: Reports no additional constitutional complaints, Denies chills and Denies fever(s) Eyes: Eyes: Reports no additional eye complaints ENT: Reports system reviewed and no additional complaints, except as documented Cardiovascular: Cardiovascular: Reports no additional cardiovascular complaints Respiratory: Respiratory: Reports no additional respiratory complaints Gastrointestinal: Gastrointestinal: Reports no additional gastrointestinal complaints Musculoskeletal: Musculoskeletal: Reports as per HPI (left great toe pain) Integumentary/Breasts: Skin/Breast: Reports as per HPI and Reports erythema Neurologic: Reports system reviewed and no additional complaints, except as documented Psychiatric: Psychiatric: Reports no additional psychiatric complaints Allergic/Immunologic: Allergic/Immunologic: Reports no additional allergic/immunologic complaints [facility] Past Medical History Medical History Depression Insomnia Kidney stones Rheumatoid arthritis Social anxiety disorder Therapeutic opioid induced constipation Surgical History Surgical History History of sinus surgery (2007) History of tonsillectomy Family History Family History Mother Congestive heart failure Father Congestive heart failure Sibling Patient's brother is in good health, Onset Age: 50 Patient's sister is in good health Social History Social History Social History: She lives at home with her long-term significant other of over 20 years. She has 1 daughter. She has a history of tobacco use and has switched throughout the years from smoking to nicotine inhalers and now to E cigarettes. She denies any significant alcohol use. She denies illicit substance use.
[2021-09-23 13:28] VITALS: BP 132/75; PULSE 87; RESP 16; TEMP 37.2; O2SAT 96
== END 2021-09-23 13:48 | disposition home or self-care (01) ==
PROVIDERS: Emergency Provider Nurse Practitioner
DX: M79.675 Pain in left toe(s) (principal); F17.290 Nicotine dependence, other tobacco product, uncomplicated; M06.9 Rheumatoid arthritis, unspecified; F32.A Depression, unspecified; F40.10 Social phobia, unspecified
CPT/HCPCS: 99213; G0463

== ENCOUNTER 2021-12-18 09:12 | Emergency (ER) | payer OTHER, SELFPAY ==
[2021-12-18 09:23] VITALS: BP 118/65; PULSE 82; RESP 16; TEMP 36.9; O2SAT 98
--- NOTE | 2021-12-18 09:23 | ED.LOWEXIN ---
HPI - Extremity Injury (Lower) General Chief Complaint: Extremity Injury, Lower Stated Complaint: lt foot big toe injury Time Seen by Provider: 12/18/21 09:26 Source: patient Mode of arrival: ambulatory Limitations: no limitations History of Present Illness HPI Narrative: 61-year-old female with history of RA presented for complaint of left great toe redness, swelling, and pain for 4 days. She endorses a blister. On the top of the toe yesterday. She attempted to ?poke it with a needle? x3 yesterday but was unable to drain it. Taking scheduled morphine and meloxicam for pain. She does not have a PCP. She has planned to follow up with head of marketing for a known plantar wart to the left great toe, but has not yet established. She denies numbness, tingling, weakness of the foot. She denies nausea, vomiting, diarrhea, fevers or chills. Related Data Home Medications Medication Instructions Recorded Confirmed alprazolam 0.25 mg tablet 0.25 mg PO TID 03/13/21 09/23/21 atorvastatin 20 mg tablet 20 mg PO HS 03/13/21 09/23/21 gabapentin 300 mg tablet 300 mg PO BID 03/13/21 09/23/21 hydrocodone 5 mg-acetaminophen 325 1 tablet PO Q8H PRN Pain, Moderate 03/13/21 09/23/21 mg tablet methylprednisolone 4 mg tablet 4 mg PO BID 03/13/21 09/23/21 trazodone 150 mg tablet 150 mg PO HS 03/13/21 09/23/21 zolpidem 10 mg tablet 10 mg PO HS PRN sleep 03/13/21 09/23/21 aspirin 81 mg tablet,delayed 81 mg PO DAILY 03/14/21 09/23/21 release ergocalciferol (vitamin D2) 1,250 1,250 mcg PO WEEKLY 03/14/21 09/23/21 mcg (50,000 unit) capsule meloxicam 15 mg tablet 15 mg PO BID 03/14/21 09/23/21 methylnaltrexone 150 mg tablet 150 mg PO PRN 03/14/21 09/23/21 (Relistor) morphine 30 mg tablet,extended 30 mg PO BID 03/14/21 09/23/21 release ondansetron 4 mg disintegrating 4 mg PO TID 03/14/21 09/23/21 tablet leflunomide 20 mg tablet 20 mg PO DAILY 09/23/21 09/23/21 pantoprazole 40 mg tablet,delayed 40 mg PO DAILY 09/23/21 09/23/21 release Allergies Allergy/AdvReac Type Severity Reaction Status Date / Time No Known Allergies Allergy Mild Verified 09/23/21 13:20 Review of Systems Review of Systems: CONSTITUTIONAL: Denies body aches, fever, chills EYES: Denies visual changes CARDIOVASCULAR: Denies chest pain, palpitations, or edema. RESPIRATORY: Denies cough or dyspnea. SKIN: Reports redness and swelling to left great toe MUSCULOSKELETAL: reports joint pain NEUROLOGIC: Denies headache All systems reviewed & are unremarkable except as noted in HPI and below PMFSH Past Medical History Medical History Depression Insomnia Kidney stones Rheumatoid arthritis Social anxiety disorder Therapeutic opioid induced constipation Surgical History Surgical History History of sinus surgery (2007) History of tonsillectomy Family History Family History Mother Congestive heart failure Father Congestive heart failure Sibling Patient's brother is in good health, Onset Age: 50 Patient's sister is in good health Social History Social History Social History: She lives at home with her long-term significant other of over 20 years. She has 1 daughter. She has a history of tobacco use and has switched throughout the years from smoking to nicotine inhalers and now to E cigarettes. She denies any significant alcohol use. She denies illicit substance use. Code status: Full code Surrogate decision maker: Blas Grimaldo Smoking status: Current every day smoker Tobacco type: e-cigarettes/vaping Alcohol intake: former Substance use type: painkillers Gender identity (if verbalized by the patient): Female Spiritual care concerns: No Comments At time of signature, I have reviewed
== END 2021-12-18 10:13 | disposition home or self-care (01) ==
PROVIDERS: Emergency Provider Nurse Practitioner Family
DX: L02.612 Cutaneous abscess of left foot (principal); F17.290 Nicotine dependence, other tobacco product, uncomplicated; M06.9 Rheumatoid arthritis, unspecified; F40.10 Social phobia, unspecified; F32.A Depression, unspecified
CPT/HCPCS: 10060; 99213; G0463

== ENCOUNTER 2022-02-06 14:55 | Outpatient (CLI) | payer OTHER, SELFPAY ==
--- NOTE | ~2022-02-06 | MR_ITS ---
EXAMINATION: MR foot LT wo con DATE: 02/06/2022 15:45 INDICATION: Left foot pain TECHNIQUE: Magnetic resonance imaging (MRI) of the left fore/mid foot was performed without intraveno us contrast. Sequences included sagittal T1-weighted FSE, sagittal fluid sensitive FSE STIR, coronal PD-weighted FS FSE, coronal T1-weighted FSE, axial PD-weighted FS FSE, and axial PD-weighted FSE. COMPARISON: None FINDINGS: No acute fracture. Mild dorsal subluxation and proximal migration of the first distal phalanx over th e dorsal margin of the first middle phalanx which appears chronically eroded with smooth low signal i ntensity likely corticated margin. There is prominent osseous excrescence the dorsal base of the firs t distal phalanx suggesting either heterotopic ossification along the distal insertion of the extenso r tendon or an old healed dorsal avulsion fracture. There is prominent marrow edema at the distal asp ect of the middle phalanx and throughout the proximal phalanx without loss of T1 marrow fat signal to elevate concern for osteomyelitis. Findings are consistent with advanced arthritis, either secondary to old trauma or a chronic inflammatory arthritis. Focal soft tissue swelling with mild increased fl uid signal and loss of T1 fat signal at the medial plantar aspect of the eroded head of the first pro ximal phalanx. No abscess. Mild to moderate osteoarthritis at the first and second metatarsophalangeal joints. Minimal joint eff usion at the first metatarsophalangeal joint. There appear to be small erosions along the plantar asp ect of the heads of the second-fourth metatarsals which raises suspicion for gout or inflammatory art hritis such as rheumatoid. No significant surrounding synovitis to suggest active inflammation. Addit ional mild polyarticular osteoarthritis at several of the tarsal metatarsal and at the remaining inte rphalangeal joints. The Lisfranc ligament complex as well as the collateral ligament complex at the m etatarsophalangeal joints appear normal. Mild scarring consistent with chronic partial tear at the me dial collateral ligament complex at the first interphalangeal joint. Remaining interphalangeal collat eral ligament complex appear to remain intact. The visualized portion of the flexor and extensor tend ons appear normal with no tenosynovitis. IMPRESSION: 1. Advanced arthritis at the first interphalangeal joint with prominent chronic appearing erosion at the head of the first proximal phalanx and secondary dorsal and proximal subluxation of the distal ph alanx. This suggests secondary arthritis related to either old trauma or a chronic inflammatory arthr itis such as rheumatoid or gout. Correlate with clinical history. Increased fluid signal at the head of the middle phalanx and throughout the distal phalanx is without evident acute appearing cortical e rosion or loss of T1 fat signal to elevate suspicion for osteomyelitis in this most likely represents reactive edema. 2. Focal soft tissue swelling with loss of T1 hyperintense fat signal and increased fluid signal at t he fat pad at the medial plantar aspect of the head of the first proximal phalanx which could represe nt phlegmonous change related to skin ulceration, callus formation or potentially a gouty tophus. 3. Suggestion of small erosions at the plantar aspect of the heads of the second-fourth metatarsals w ith low signal intensity likely sclerotic margins suggesting chronic erosions which again could be re lated to an inflammatory arthritis such as rheumatoid or gout. Reviewed, dictated and finalized at location A. NCIAL SERVICES COUNSELOR IMPRESSION: 1. Advanced arthritis at the first interphalangeal joint with prominent chronic appearing erosion at the head of the first proximal phalanx and secondary dors al and
== END 2022-02-06 14:56 | disposition home or self-care (01) ==
LOC: ANHIMG 15:00
DX: M19.072 Primary osteoarthritis, left ankle and foot (principal)
CPT/HCPCS: 73718

== ENCOUNTER 2022-06-26 11:57 | Outpatient (CLI) | payer OTHER, SELFPAY ==
--- NOTE | ~2022-06-26 | XR_ITS ---
Left Knee Technique: AP and lateral views were obtained. Clinical History: Pain Findings: No fracture or dislocation is seen. Osseous alignment is anatomic. Joint spaces are preserv ed without degenerative or erosive change. Soft tissues are unremarkable. No joint effusion is seen. Impression: Unremarkable left knee radiographs. Reviewed, dictated and finalized at location . Impression: Unremarkable left knee radiographs.
--- NOTE | ~2022-06-26 | XR_ITS ---
Left Hand Technique: PA, oblique, and lateral views were obtained. Clinical History: Pain COMPARISON: 11/10/2020 Findings: No acute fracture seen. There is severe ulnar subluxation of the second through fifth metac arpophalangeal joints. There is moderate osteoarthritic change at the second and third metacarpophala ngeal joints. Remaining joint spaces are intact. Suspected chronic erosive change of the second metat arsal head, similar to prior exam. Soft tissues are unremarkable. Impression: No acute abnormality evident. 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 These findings are similar to prior exam, and raises the possibility of i nflammatory arthropathy related to etiologies such as rheumatoid arthritis or lupus. Reviewed, dictated and finalized at [facility]. Impression: No acute abnormality evident. Severe ulnar subluxation of the second through fifth metacarpophalangeal joints with associated degenerative change at the second third metacarpophalangeal kirsten ints and probable chronic erosive change of the second metacarpal head. These f indings are similar to prior exam, and raises the possibility of inflammatory a rthropathy related to etiologies such as rheumatoid arthritis or lupus.
--- NOTE | ~2022-06-26 | XR_ITS ---
Right Hand Technique: PA, oblique, and lateral views were obtained. Clinical History: Pain COMPARISON: 11/10/2020 Findings: No acute fracture seen. There is ulnar subluxation of the second and third metacarpophalang eal joints, and probably minimally of the fourth and fifth metacarpophalangeal joints. There is proba ble chronic erosive change of the second metacarpal head. There is probable underlying degenerative c hange of the second and third metacarpal phalangeal joints. Soft tissues are unremarkable. Impression: No acute abnormality. Ulnar subluxation of the metacarpophalangeal joints, especially second and third, with probable chron ic erosive change of the second metacarpal head. Findings are similar to prior exam, and suggest unde rlying inflammatory arthropathy such as related to rheumatoid arthritis or lupus. Correlate currently . Reviewed, dictated and finalized at [facility]. Impression: No acute abnormality. Ulnar subluxation of the metacarpophalangeal joints, especially second and thir d, with probable chronic erosive change of the second metacarpal head. Findings are similar to prior exam, and suggest underlying inflammatory arthropathy suc h as related to rheumatoid arthritis or lupus. Correlate currently.
--- NOTE | ~2022-06-26 | XR_ITS ---
Right Knee Technique: AP and lateral views were obtained. Clinical History: Pain Findings: No fracture or dislocation is seen. Osseous alignment is anatomic. There is mild degenerati ve change of the medial compartment. Lateral and patellofemoral compartments are unremarkable. Soft t issues are unremarkable. No joint effusion is seen. Impression: Mild medial compartment degenerative change. Reviewed, dictated and finalized at location . Impression: Mild medial compartment degenerative change.
--- NOTE | ~2022-06-26 | XR_ITS ---
Lumbosacral Spine: AP and lateral views Clinical History: Pain COMPARISON: 11/10/2020 Findings: The normal lordotic curve is maintained. No fracture identified. 4 mm anterolisthesis of L3 over L4 present. There is moderate to advanced facet arthropathy from L3 through S1. There is mild d egenerative disc change at L1-L4. The sacroiliac joints are normally outlined. Impression: 4 mm anterolisthesis of L3 over L4. Mild to moderate degenerative spondylosis, as detailed above. Reviewed, dictated and finalized at location M. Impression: 4 mm anterolisthesis of L3 over L4. Mild to moderate degenerative spondylosis, as detailed above.
--- NOTE | ~2022-06-26 | XR_ITS ---
XR_CERV2-3V_CR 06/26/2022 12:42 Indication: Neck pain Procedure: 4 view cervical spine Comparison: No prior studies for comparison. Findings: Odontoid process is normal. Vertebral body heights are maintained. Normal cervical alignmen t. No acute fracture or traumatic malalignment. There is multilevel facet and uncinate hypertrophy. L elif apices are normal. No prevertebral soft tissue abnormality. Impression: 1: Moderate cervical spondylosis. Reviewed, dictated and finalized at location L. Impression: 1: Moderate cervical spondylosis.
== END 2022-06-26 11:58 | disposition home or self-care (01) ==
PROVIDERS: PCP Internal Medicine; Visit Provider Pain Medicine Interventional Pain Medicine
DX: M47.27 Other spondylosis with radiculopathy, lumbosacral region (principal); Z79.891 Long term (current) use of opiate analgesic; M47.22 Other spondylosis with radiculopathy, cervical region; M17.11 Unilateral primary osteoarthritis, right knee
CPT/HCPCS: 72040; 72100; 73130; 73560

== ENCOUNTER 2023-03-08 11:34 | Outpatient (CLI) | payer OTHER, SELFPAY ==
--- NOTE | ~2023-03-08 | XR_ITS ---
Lumbosacral Spine: AP and lateral views Clinical History: Pain Findings: The normal lordotic curve is maintained. No fracture evident. There is 5 mm anterolisthesis of L3 over L4. There is 6 mm anterolisthesis of L4 over L5. There is moderate to advanced facet arth ropathy from L3 through S1.. The sacroiliac joints are normally outlined. Impression: 6 mm anterolisthesis of L4 over L5. 5 mm anterolisthesis of L3 over L4. Facet arthropathy, as above. Reviewed, dictated and finalized at location M. 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 5 mm anterolisthesis of L3 over L4. Facet arthropathy, as above.
--- NOTE | ~2023-03-08 | XR_ITS ---
EXAMINATION: XR_CERV2-3V_CR DATE: 03/08/2023 12:06 INDICATION: Cervical radiculopathy. TECHNIQUE: 4 views of cervical spine were obtained. COMPARISON: Cervical spine radiographs 06/26/2022 FINDINGS: There is 3 degrees dextrocurvature of cervical spine. Vertebral body heights are normal. Th ere is mildly decreased disc height at C4-C5, moderately decreased disc height at C5-C6, and mildly d ecreased disc height at C6-C7. There is multilevel mild facet joint osteoarthritis. There is mild kelly tral canal stenosis at C5-C6. No prevertebral soft tissue swelling. IMPRESSION: 1. Moderate cervical spondylosis. Reviewed, dictated and finalized at location [employer]IVER
== END 2023-03-08 11:35 | disposition home or self-care (01) ==
PROVIDERS: PCP Internal Medicine; Visit Provider Pain Medicine Interventional Pain Medicine
DX: M47.22 Other spondylosis with radiculopathy, cervical region (principal); M47.26 Other spondylosis with radiculopathy, lumbar region; M43.16 Spondylolisthesis, lumbar region
CPT/HCPCS: 72040; 72100

== ENCOUNTER 2024-07-15 13:54 | Outpatient (CLI) | payer MEDICARE, MEDICAID, SELFPAY ==
--- NOTE | ~2024-07-15 | XR_ITS ---
3 VIEWS LUMBAR SPINE Ordering provider: Kenneth Mariscal, History: . Radiculopathy . Comparison: None. FINDINGS: VERTEBRAL BODIES: No visible fracture or subluxation. DISK SPACES: Narrowing of the disc L4-L5 and L5-S1. Multilevel facet joint disease. SOFT TISSUES: Normal. IMPRESSION: No acute osseous abnormality lumbar spine. Multilevel degenerative disc disease. Reviewed, dictated and finalized at location A.
--- OUTSIDE RECORDS SUMMARY | 2024-07-15 14:14 | XMS_ITS | Encounter Summary ---
Author Organization [facility] Address [address] [place] [address] Phone Care Team Providers Care Washery Boss Name Role Phone Patrick Bowden MD Primary Care Provider [phone] Zac Rojo MD Unavailable [phone] Ivon Smith APRN, COMMUNITY PRODUCT SPECIALIST Unavailable [phone] Reason for Visit * Reason Comments Medication Refill Encounter Details Date Type Department Care Team (Late st Contact Info) Description 10/02/2023 Refill [facility] - Internal Medicine - [place] [address] [place] [address] Patrick Bowden MD [address] [facility] [place] [address] Medication Refill Social History Tobacco Use Types Packs/Day Years Used Date Smoking Tobacco: Former Cigarettes Q uit: 08/11/2020 Passive Smoke Exposure: Past Smokeless Tobacco: Never Alcohol Use Standard Drinks/Week Comments Never 0 (1 standard drink = 0.6 oz pur e alcohol) [facility] Utilities Answer Date Recorded In the past 12 months has [employer], gas, oil, or water [employer] threatened to shut off services in your home? Patient declined 01/28/2023 Social Connection and Isolation Panel [NHANES] A nswer Date Recorded In a typical week, how many times do you talk on the phone with family, friends, or neighbors? Patient declined 01/28/2023 How often do you get togethe r with friends or relatives? Patient declined 01/28/2023 How often do you attend jain or spiritism serv ices? Patient declined 01/28/2023 Do you belong to any clubs o r organizations such as jain groups, unions, fraternal or athletic groups, or school groups? Patient declined 01/28/2023 How often do you attend meet ings of the clubs or organizations you belong to? Patient declined 01/28/2023 Are you , , di vorced, , never , or living with a partner? Patient declined 01/28/2023 AUDIT-C Answer Date Recorded Q1: How often do you have a drink containing alc ohol? Patient declined 01/28/2023 Q2: How many drinks containi ng alcohol do you have on a typical day when you are drinking? Patient declined 01/28/2023 Q3: How often do you have si x or more drinks on one occasion? Patient declined 01/28/2023 Overall Financial Resource Strain (CARDIA) Answe r Date Recorded How hard is it for you to pa y for the very basics like food, housing, medical care, and heating? Patient declined 01/28/2023 PHQ-2 Answer Date Recorded Total Score - Questions 1-9 0 01/11 [facility] Occupat ional Health - Occupational Stress Questionnaire Answer Date Recorded Do you feel stress - tense, restless, nervous, or anxious, or unable to sleep at night because your mind is troubled all the time - these days? Patient declined 01/28/2023 Exercise Vital Sign Answer Date Recorde d On average, how many days pe r week do you engage in moderate to strenuous exercise (like a brisk walk)? Patient declined On average, how many minutes do you engage in exercise at this level? Patient declined 01/28/2023 Hunger Vital Sign Answer Date Recorded Within the past 12 months, y ou worried that your food would run out before you got the money to buy more. Patient declined Within the past 12 months, t he food you bought just didn't last and you didn't have money to get more. Patient declined PRAPARE - Transportation Answer Date Re corded In the past 12 months, has l ack of transportation kept you from medical appointments or from getting medications? Patient declined 01/28/2023 In the past 12 months, has l ack of transportation kept you from meetings, work, or from getting things needed for daily living? Patient declined 01/28/2023 Housing Stability Vital Sign Answer Mj e Recorded In the last 12 months, was t here a time when you were not able to pay the mortgage or rent on time? Patient declined 01/29/20 23 Number of Places Lived in the Last Year Not on f ile 01/28/2023 In the last 12 months, was t here a time when you did not have a steady place to sleep or slept in a snf (including now)? Patient declined 01/28/2023 Education Answer Date Recorded What is the highest level of school you have completed or the highest degree you have received? Bachelor's degree (e.g., BA, AB, BS) 01/17/2023 Sexually Active Control Partners Comments Not Currently Comments No Sex and Gender Information Value Date Recorded Sex Assigned at Not on file Legal Sex Female 10:57 PM CDT Gender Identity Not on file Sexual Orientation Not on file documented as of this encounter Plan of Treatment Upcoming Encounters Date Type Department Care Team (Late st Contact Info) Description 08/21/2024 1:00 PM CDT Office Visit [facility] - Obstetrics & Gynecology [facility] [address] [place] [address] Ivon Smith, CANVAS GOODS FABRICATOR, COMMUNITY PRODUCT SPECIALIST [address] [place] [address] 08/24/2024 10:30 AM CDT Office Visit [facility] - Internal Medicine - [place] [address] [place] [id number] Patrick Bowden MD [address] [place] [address] documented as of this encounter Visit Diagnoses Not on filedocumented in this encounter Additional Health Concerns Assessment Noted Time PHQ-9 Depression Total Score: 0 01/29/20 23 11:30 AM 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
--- OUTSIDE RECORDS SUMMARY | 2024-07-15 14:14 | XMS_ITS | Encounter Summary ---
Author Organization [facility] Address [address] [place] [address] Phone Care Team Providers Care Ip Litigation Associate Name Role Phone Patrick Bowden MD Primary Care Provider [phone] Zac Rojo MD Unavailable [phone] Ivon Smith APRN, FINANCIAL AIDS OFFICER Unavailable [phone] Reason for Visit * Reason Comments Medication Refill Encounter Details Date Type Department Care Team (Late st Contact Info) Description 09/21/2023 Refill [facility] - Internal Medicine - [place] [address] [place] [address] Patrick Bowden MD [address] [place] [address] Medication Refill Social History Tobacco Use Types Packs/Day Years Used Date Smoking Tobacco: Former Cigarettes Q uit: 08/11/2020 Passive Smoke Exposure: Past Smokeless Tobacco: Never Alcohol Use Standard Drinks/Week Comments Never 0 (1 standard drink = 0.6 oz pur e alcohol) [place] Utilities Answer Date Recorded In the past 12 months has [employer], gas, oil, or water [employer] threatened to shut off services in your home? Patient declined 01/28/2023 Social Connection and Isolation Panel [NHANES] A nswer Date Recorded In a typical week, how many times do you talk on the phone with family, friends, or neighbors? Patient declined 01/28/2023 How often do you get togethe r with friends or relatives? Patient declined 01/28/2023 How often do you attend confucianism or yazdanism serv ices? Patient declined 01/28/2023 Do you belong to any clubs o r organizations such as confucianism groups, unions, fraternal or athletic groups, or [...] Total Score - Questions 1-9 0 01/11 [facility] of Occupat ional Health - Occupational Stress [...] place to sleep or slept in a longterm (including now)? Patient declined 01/28/2023 Education Answer [...] on file documented as of this encounter Miscellaneous Notes * Telephone Encounter - Kamryn Orozco RN - 09/23/2023 8:55 AM CDT Medication failed the protocol, provider to review and approve the medication order if appropriate. Requested Prescriptions Pending Prescriptions Disp Refills traZODone (DESYREL) 150 MG Tablet [Pharmacy Med Name: TRAZODONE 150MG (HUNDRED- FIFTY) TAB] 60 Tablet 0 Sig: TAKE 2 TABLETS BY MOUTH EVERY NIGHT AT BEDTIME Serotonin Modulators (6 Month Refill Only) Protocol Failed - 09/21/2023 1:26 PM Failed - Has an encounter in the past 6 months with a depression or anxiety visit diagnosis Passed - Visit with relevant provider in past 6 months or upcoming 90 days Recent Visits Date Type Provider Dept 08/21/23 Office Visit Mary Lou Land, [facility] [place] Showing recent visits within past 182 days and meeting all other requirements Future Appointments No visits were found meeting these conditions. Showing future appointments within next 90 days and meeting all other requirements Passed - No PRN Use for Trazodone Passed - Patient has established therapy with Serotonin Modulators for at least 6 months documented in this encounter Plan of Treatment Upcoming Encounters Date Type Department Care Team (Late st Contact Info) Description 08/21/2024 1:00 PM CDT [facility]s [facility] [address] [place] [address] Ivon Smith, AFFIRMATIVE ACTION OFFICER, FINANCIAL AIDS OFFICER [address] [place] [address] 08/24/2024 10:30 AM CDT Office Visit [facility] Medical [facility] - Internal Medicine [facility] [address] [place] [id number] Patrick Bowden MD [address] [place] [address] documented as of this encounter Visit Diagnoses Not on filedocumented in this encounter Additional Health Concerns Assessment Noted Time PHQ-9 Depression Total Score: 0 01/29/20 23 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
--- OUTSIDE RECORDS SUMMARY | 2024-07-15 14:15 | XMS_ITS | Encounter Summary ---
Author Organization [facility] Address [address] [place] [address] Care Team Providers Care Water/Wastewater Engineer Name Role Phone Patrick Bowden MD Primary Care Provider [phone] Encounter Details Date Type Department Care Team (Late st Contact Info) Description 06/28/2024 Results Follow-Up [facility] [place] [id number] [place] [address] Elizabeth Mariee PA [address] [facility] [address] [place] [address] Aerobic and anaerobic culture and gram stain Wound Toe, second, right Social History Tobacco Use Types Packs/Day Years Used Date Smoking Tobacco: Former Cigarettes Smokeless Tobacco: Never AUDIT-C Answer Date Recorded Q1: How often do you have a drink containing alcohol? Never 11/15/2022 Q2: How many drinks containi ng alcohol do you have on a typical day when you are drinking? Patient does not drink Q3: How often do you have si x or more drinks on one occasion? Never 11/15/2022 Comments Unknown Sex and Gender Information Value Date Recorded Sex Assigned at Not on file Legal Sex Female 7:41 AM FUR TINTER Gender Identity Female 06/27/2024 6:43 PM CDT Sexual Orientation Straight 06/27/2024 6: 43 PM CDT documented as of this encounter Plan of Treatment Not on file documented as of this encounter Visit Diagnoses Not on filedocumented in this encounter Care Teams Water/Wastewater Engineer Relationship Specialty Start Date End Date Patrick Bowden MD [address] [place] [address] PCP - General Internal Medicine 11/16/22 documented as of this encounter
--- OUTSIDE RECORDS SUMMARY | 2024-07-15 14:15 | XMS_ITS | Encounter Summary ---
Author Organization [facility] Address [facility] [facility] [place] [address] Care Team Providers Care Christmas Tree Grader Name Role Phone Provider, No Pcp Primary Care Provider Unavailab le Encounter Details Date Type Department Care Team (Late Contact Info) Description 07/03/2024 Results Follow-Up [facility] - General Dermatology [address], [address] [address] David Whalen, PA-C [address] [address] Social History Tobacco Use Types Packs/Day Years Used Date Smoking Tobacco: Former Smokeless Tobacco: Never Comments:e-cig Alcohol Use Standard Drinks/Week Comments No 0 (1 standard drink = 0.6 oz pur e alcohol) Comments No Sex and Gender Information Value Date Recorded Sex Assigned at Not on file Legal Sex Female 2:08 PM CDT Gender Identity Not on file Sexual Orientation Not on file documented as of this encounter Plan of Treatment Upcoming Encounters Date Type Department Care Team ([facility] Contact Info) Description 10/05/2024 11:00 AM CDT Office Visit [facility] - General Dermatology [address], [facility] [address] [place] [address] David Whalen, PA-C [address] [address] documented as of this encounter Visit Diagnoses Not on filedocumented in this encounter Care Teams Christmas Tree Grader Relationship Specialty Start Date End Date Provider, No Pcp PCP - General 07/01/24 documented as of this encounter
--- OUTSIDE RECORDS SUMMARY | 2024-07-15 14:15 | XMS_ITS | Clinical Summary ---
Author Organization [facility] Address [address] [place] [address] Phone Care Team Providers Care Assistant Signal Maintainer Name Role Phone Patrick Bowden MD Primary Care Provider Zac Rojo MD Unavailable [phone] Ivon Smith HEAD TRIMMER, FUEL ATTENDANT Unavailable [phone] Allergies Active Allergy Reactions Criticality Noted Date Comments Atorvastatin Nausea 02/24/2024 Medications ALPRAZolam (XANAX) 0.25 MG Tablet Take 0.25 mg by mouth 3 times daily as needed. 3 Active HYDROcodone-tanisha taminophen (NORCO) 5-325 MG Tablet TAKE 1 TABLET BY MOUTH THREE TIMES DAILY NEEDED 3 Active Relistor 150 MG Tablet TAKE 3 TABLETS BY MOUTH EVERY DAY NEEDED FOR CONSTIPATION 3 Active morphine (MS CONTIN) 30 MG Tablet Controlled Release TAKE 1 TABLET BY MOUTH TWICE DAILY NEEDED 3 Active pantoprazole (PROTONIX) 40 MG Tablet Delayed Response 3 Active aspirin EC 81 MG Tablet Delayed Response Adult Low Dose Aspirin 81 mg tablet,delayed release Take 1 tablet every day by oral route after meals for 90 days. Active ondansetron (ZOFRAN) 4 MG Tablet 3 Active Cholecalciferol (Vitamin D3) 50 MCG (2000 UT) Tablet Take 2,000 Units by mouth daily. Active vitamin b-12 (CYANOCOBALAMIN ) 500 MCG Tablet Take 500 mcg by mouth daily. Active meloxicam (MOBIC) 15 MG Tablet TAKE 1 TABLET BY MOUTH DAILY 90 Tablet 1 3 Active gabapentin (NEURONTIN) 600 MG Tablet TAKE 1 TABLET BY MOUTH EVERY MORNING AND 2 TABLETS EVERY NIGHT AT BEDTIME 270 Tablet 1 5 Active traZODone (DESYREL) 150 MG Tablet TAKE 2 TABLETS BY MOUTH EVERY NIGHT 60 Tablet 2 5 Active Active Problems Problem Noted Date Diagnosed Date Other chronic pain 08/21/2023 Overview (08/21/2023): UDS per pain mgmnet Pain meds per pain mgment Followed by pain mgment Rheumatoid arthritis involving multiple joints 0 04/02/2022 Other hyperlipidemia 04/02/2022 Idiopathic neuropathy 04/02/2022 GERD without esophagitis 04/02/2022 Primary insomnia 04/02/2022 Encounters Date Type Department Care Team Description 07/13/2024 Travel 06/22/2024 Travel 05/21/2024 [facility] [address] [place] [address] Patrick Bowden MD Medication Refill 04/17/[facility]24 [facility] [address] [address] Mary Lou Land PAC Medication Refill from Last 3 Months Immunizations Immunization Administration Dates Next Due Influenza Vaccine, Quadrivalent, PF 04/02/2022 Influenza,Split Virus,Trivalent,Injectable,PF Pneumococcal conjugate PCV20 , polysaccharide [id number] conjugate, adjuvant, PF 01/28/2023 Family History Medical History Relation Name Comments No Known Problems Brother No Known Problems Sister Relation Name Status Comments Brother Alive Father Mother Sister Alive Social History Tobacco Use Types Packs/Day Years Used Date Smoking Tobacco: Former Cigarettes Q uit: 08/11/2020 Passive Smoke Exposure: Past Smokeless Tobacco: Never Tobacco Cessation:Counseling Given: No Alcohol Use Standard Drinks/Week Comments Never 0 (1 standard drink = 0.6 oz pur e alcohol) [facility] Utilities Answer Date Recorded In the past 12 months has th e electric, gas, oil, or water [employer] threatened to shut off services in your home? No 02/24/2024 Social Connection and Isolation Panel [NHANES] A nswer Date Recorded In a typical week, how many times do you talk on the phone with family, friends, or neighbors? Never 02/24/2024 How often do you get togethe r with friends or relatives? Once a week 02/24/2024 How often do you attend confucianism or yarsanism serv ices? Never 02/24/2024 Do you belong to any clubs o r organizations such as confucianism groups, unions, fraternal or athletic groups, or school groups? No 02/24/2024 How often do you attend meet ings of the clubs or organizations you belong to? Never 02/24/2024 Are you , , di vorced, , never , or living with a partner? Patient declined 02/24/2024 AUDIT-C Answer Date Recorded Q1: How often do you have a drink containing alc ohol? 2-4 times a month 07/13/2024 Q2: How many drinks containi ng alcohol do you have on a typical day when you are drinking? 1 or 2 07/13/2024 Q3: How often do you have si x or more drinks on one occasion? Never 07/13/2024 Overall Financial Resource Strain (CARDIA) Answe r Date Recorded How hard is it for you to pa y for the very basics like food, housing, medical care, and heating? Somewhat hard 02/24/2024 PHQ-2 Answer Date Recorded Total Score - Questions 1-9 0 02/11 [facility] - Occupational Stress Questionnaire Answer Date Recorded Do you feel stress - tense, restless, nervous, or anxious, or unable to sleep at night because your mind is troubled all the time - these days? To some extent 02/24/2024 Exercise Vital Sign Answer Date Recorde d On average, how many days pe r week do you engage in moderate to strenuous exercise (like a brisk walk)? 1 day 07/13/2024 On average, how many minutes do you engage in exercise at this level? 20 min 07/13/2024 Hunger Vital Sign Answer Date Recorded Within the past 12 months, y ou worried that your food would run out before you got the money to buy more. Sometimes true Within the past 12 months, t he food you bought just didn't last and you didn't have money to get more. Never true PRAPARE - Transportation Answer Date Re corded In the past 12 months, has l ack of transportation kept you from medical appointments or from getting medications? No 02/11 In the past 12 months, has l ack of transportation kept you from meetings, work, or from getting things needed for daily living? No 02/24/2024 Housing Stability Vital Sign Answer Mj e [...] a longterm (including now)? Patient declined 01/28/2023 Housing Stability Vital Sign Answer Mj e Recorded In the last 12 months, was t here a time when you were not able to pay the mortgage or rent on time? No 07/13/2024 In the past 12 months, how m any times have you moved where you were living? 0 07/13/2024 At any time in the past 12 m [facility], were you homeless or living in a longterm (including now)? No 07/13/2024 Education Answer Date Recorded What is the [...] on file Sexual Orientation Not on file Last Filed Vital Signs Vital Sign Reading Time Taken Comments Blood Pressure 110/62 02/24/2024 9:35 AM LAPPING MACHINE OPERATOR Pulse 80 02/24/2024 9:35 AM LAPPING MACHINE OPERATOR Temperature 36.9 C (98.4 F) 02/24/2024 9:35 AM LAPPING MACHINE OPERATOR Respiratory Rate 12 08/21/2023 9:47 AM CDT Oxygen Saturation 99% 02/24/2024 9:35 AM LAPPING MACHINE OPERATOR Inhaled Oxygen Concentration - - Weight 62.6 kg (138 lb) 02/24/2024 9:35 AM LAPPING MACHINE OPERATOR Height 167.6 cm (5' 6) 02/24/2024 9:35 AM LAPPING MACHINE OPERATOR Body Mass Index 22.27 02/24/2024 9:35 AM LAPPING MACHINE OPERATOR Plan of Treatment Upcoming Encounters Date Type Department Care Team (Late st Contact Info) Description 08/21/2024 1:00 PM CDT Office Visit [facility] - Obstetrics & Gynecology [facility] [address] [place] [address] Ivon Smith, HEAD TRIMMER, FUEL ATTENDANT [address] [place] [address] 08/24/2024 10:30 AM CDT Office Visit [facility] - Internal Medicine [facility] [address] [place] [address] Patrick Bowden MD [address] [place] [address] Health Maintenance Due Date Last Done Comments Hepatitis C Virus (HCV) Screening 1960 TdaP Immunization 1960 Pap Smear 1981 HPV/Cotest 1990 Colonoscopy 2005 Immunochemical Fecal Occult Blood 2010 Cologuard 03/10/2024 03/10/2021 Colorectal Cancer Screening 03/10/2024 Pneumococcal Immunization (50+ years) Completed 01/28/2023 Pneumococcal Immunization Combined Discontinued 01/28/2023 Zoster Immunization Discontinued 08/09/2023, Influenza Immunization Completed , 01/23/2023, 04/02/2022 Respiratory Syncytial Virus (RSV) Immunization (Adult) Completed 02/25/2024 SARS-COV-2 Immunization Completed 02/24/19 25, 08/09/2023, 01/23/2023, Additional history exists Cervical Cancer Screening (CCS) Discontinued Hepatitis B Immunization Aged Out No longer eligible based on patient's age to complete this topic Human Papillomavirus (HPV) Immunization Aged Out No longer eligible based on patient's age to complete this topic Mammogram Discontinued Meningococcal Immunization (ACWY) Aged Out No longer eligible based on patient's age to complete this topic Rotavirus Immunization Aged Out No lo nger eligible based on patient's age to complete this topic Insurance [place], [place] [address] MEDICARE C [employer] Care Teams Assistant Signal Maintainer Relationship Specialty Start Date End Date Patrick Bowden MD [address] [place] [address] PCP - General Internal Medicine 04/02/22 Zac Rojo MD [address] [place] [address] Consulting Physician Obstetrics & Gynecology 06/19/24 Ivon Smith, HEAD TRIMMER, FUEL ATTENDANT [address] [place] [address] Nurse Practitioner Advanced Practice Nurse 07/09/24
--- OUTSIDE RECORDS SUMMARY | 2024-07-15 14:15 | XMS_ITS | Encounter Summary ---
Author Organization [facility] Address [address] [place] [address] Phone Care Team Providers Care Beam House Inspector Name Role Phone Patrick Bowden MD Primary Care Provider [phone] Zac Rojo MD Unavailable [phone] Ivon Smith APRN, ART TRACER Unavailable [phone] Reason for Visit * Reason Comments Medication Refill Encounter Details Date Type Department Care Team (Late st Contact Info) Description 06/22/2023 Refill [facility] - Internal Medicine - [place] [address] [place] [address] Patrick Bowden MD [address] [facility] [place] [address] Medication Refill Social History Tobacco Use Types Packs/Day Years Used Date Smoking Tobacco: Former Cigarettes Q uit: 08/11/2020 Passive Smoke Exposure: Past Smokeless Tobacco: Never Alcohol Use Standard Drinks/Week Comments Never 0 (1 standard drink = 0.6 oz pur e alcohol) [facility] Utilities Answer Date Recorded In the past 12 months has [employer], gas, oil, or water [employer] threatened to shut off services in your home? Patient declined 01/28/2023 Social Connection and Isolation Panel [NHANES] A nswer Date Recorded In a typical week, how many times do you talk on the phone with family, friends, or neighbors? Patient declined 01/28/2023 How often do you get togethe r with friends or relatives? Patient declined 01/28/2023 How often do you attend confucianist or orthodox serv ices? Patient declined 01/28/2023 Do you belong to any clubs o r organizations such as confucianist groups, unions, fraternal or athletic groups, or [...] Total Score - Questions 1-9 0 01/11 [facility] of Occupat ional Health - Occupational [...] place to sleep or slept in a alf (including now)? Patient declined 01/28/2023 Education Answer [...] Telephone Encounter - Kamryn Orozco RN - 06/24/2023 8:28 AM CDT Medication failed the protocol, provider to review and approve the medication order if appropriate. Requested Prescriptions Pending Prescriptions Disp Refills atorvastatin (LIPITOR) 20 MG Tablet [Pharmacy Med Name: ATORVASTATIN 20MG TABLETS] 90 Tablet 1 Sig: TAKE 1 TABLET BY MOUTH EVERY NIGHT Hmg CoA Reductase Inhibitors Protocol Failed - 06/22/2023 12:56 PM Failed - Lipid panel in past 12 months LDL Date Value Ref Range Status 07/13/2022 146 (A) 0 - 130 mg/dL Final Failed - CMP in past 12 months No results found for: SODIUM, POTASSIUM, CHLORIDE, CO2VEN, ANIONGAP, GLUCOSE, BUN, CREATININE, BCRATIO8, TOTALPROTEIN, ALBUMIN, AGRT, AGRATIO, CALCIUM, TBIL, SGOTAST, SGPTALT, ALKALINEPHO, GFRNA, GFRA, GFRES, CMPREQFAST, CMPFAST Passed - Visit with relevant provider in past 12 months or upcoming 90 days Recent Visits Date Type Provider Dept 01/28/23 Office Visit Patrick Bowden MD [facility] [place] 07/19/22 Office Visit Patrick Bowden MD [facility] [place] Showing recent visits within past 365 days and meeting all other requirements Future Appointments Date Type Provider Dept 07/30/23 Appointment Patrick Bowden MD [facility] [place] Showing future appointments within next 90 days and meeting all other requirements documented in this encounter Plan of Treatment Upcoming Encounters Date Type Department Care Team (Late st Contact Info) Description 08/21/2024 1:00 PM CDT Office Visit [facility] Medical [facility] - Obstetrics & Gynecology [facility] [address] [place] [address] Ivon Smith APRN, ART TRACER [address] [place] [address] 08/24/2024 10:30 AM CDT Office Visit [facility] Medical [facility] - Internal Medicine [facility] [address] [place] [address] Patrick Bowden MD [address] [facility] [place] [address] documented as of this encounter Visit Diagnoses Not on filedocumented in this encounter Additional Health Concerns Assessment Noted Time PHQ-9 Depression Total Score: 0 01/29/20 11:30 AM [employer] DEAN documented as of this encounter Care Teams Beam House Inspector Relationship Specialty Start Date End Date Patrick Bowden MD [address] [place] [address] PCP - General Internal Medicine 04/02/22 Zac Rojo MD [address] [place] [address] Consulting Physician Obstetrics & Gynecology 06/19/24 Ivon Smith, GROUP CARE WORKER, ART TRACER [address] [place] [address] Nurse Practitioner Advanced Practice Nurse 07/09/24 documented as of this encounter
--- OUTSIDE RECORDS SUMMARY | 2024-07-15 14:15 | XMS_ITS | Encounter Summary ---
Author Organization [facility] Address [address] [place] [address] Phone Care Team Providers Care Trash Collector Truck Driver Name Role Phone Patrick Bowden MD Primary Care Provider Zac Rojo MD Unavailable [phone] Ivon Smith APRN, TAR HEATER Unavailable [phone] Reason for Visit * Reason Comments Medication Refill Encounter Details Date Type Department Care Team (Late st Contact Info) Description 09/05/2022 [facility]ill [facility] - [place] [address] [place] [address] Patrick Bowden MD [address] [place] [address] Medication Refill Social History Tobacco Use Types Packs/Day Years Used Date Smoking Tobacco: Former Cigarettes Q uit: 08/11/2020 Passive Smoke Exposure: Past Smokeless Tobacco: Never Alcohol Use Standard Drinks/Week Comments Never 0 (1 standard drink = 0.6 oz pur e alcohol) PHQ-2 Answer Date Recorded Total Score - Questions 1-9 6 03/15 Sexually Active Control Partners Comments Not Currently Comments Unknown Sex and Gender Information Value Date Recorded Sex Assigned at Not on file Legal Sex Female 10:57 PM CDT Gender Identity Not on file Sexual Orientation Not on file documented as of this encounter Miscellaneous Notes * Telephone Encounter - Kamryn Orozco, RN - 09/05/2022 2:05 PM CDT Medication failed the protocol, provider to review and approve the medication order if appropriate. Requested Prescriptions Pending Prescriptions Disp Refills traZODone (DESYREL) 150 MG Tablet [Pharmacy Med Name: TRAZODONE 150MG (HUNDRED- FIFTY) TAB] 60 Tablet 0 Sig: TAKE 2 TABLETS BY MOUTH EVERY NIGHT Serotonin Modulators (6 Month Refill Only) Protocol Failed - 09/05/2022 1:47 PM Failed - Has an encounter in the past 6 months with a depression or anxiety visit diagnosis Passed - Visit with relevant provider in past 6 months or upcoming 90 days Recent Visits Date Type Provider Dept 07/19/22 Office Visit Patrick Bowden MD [facility] [place] 04/02/22 Office Visit Patrick Bowden MD [facility] [place] Showing recent visits within past 182 days [...] Description 08/21/2024 1:00 PM CDT Office Visit [facility] Medical [facility] - Obstetrics & Gynecology [facility] [address] [place] [address] Ivon Smith, DIETICIAN, TAR HEATER [address] [place] [address] 08/24/2024 10:30 AM CDT Office Visit [facility] Medical Group - Internal Medicine [facility] [address] [place] [id number] Patrick Bowden MD [address] [place] [address] documented as of this encounter Visit Diagnoses Not on filedocumented in this encounter Additional Health Concerns Assessment Noted Time PHQ-9 Depression Total Score: 6 04/02/19 23 2:00 PM [employer]RE SUPPORT PLANNER documented as of this encounter Care Teams Trash Collector Truck Driver Relationship Specialty Start Date End Date Patrick Bowden MD [address] [place] [address] PCP - General Internal Medicine 04/02/22 Zac Rojo MD [address] [place] [address] Consulting Physician Obstetrics & Gynecology 06/19/24 Ivon Smith, DIETICIAN, TAR HEATER [address] [place] [address] Nurse Practitioner Advanced Practice Nurse 07/09/24 documented as of this encounter
--- OUTSIDE RECORDS SUMMARY | 2024-07-15 14:15 | XMS_ITS | Encounter Summary ---
Author Organization [facility] Address [address] [facility] [address] [facility] Attn: Epic Prelude ADT JOE FARIAS [address] Care Team Providers Care Warehouse Processor Name Role Phone Loida Plummer MD Primary Care Provider [phone] Encounter Details Date Type Department Care Team (Late st Contact Info) Description 09/07/1993 Outpatient Historical Adam Hackett MD Social History Tobacco Use Types Packs/Day Years Used Date Smoking Tobacco: Never Assessed Comments Unknown Sex and Gender Information Value Date Recorded Sex Assigned at Not on file Legal Sex Female 4:57 AM HEAD ORTHOPEDIC TEAM PHYSICIAN Gender Identity Not on file Sexual Orientation Not on file documented as of this encounter Plan of Treatment Not on file documented as of this encounter Visit Diagnoses Not on filedocumented in this encounter Care Teams Warehouse Processor Relationship Specialty Start Date End Date Loida Plummer MD PCP - General Rheumatology 11/26/18 documented as of this encounter
--- OUTSIDE RECORDS SUMMARY | 2024-07-15 14:15 | XMS_ITS | Clinical Summary ---
Author Organization [facility] Address [address] [place] [address] Care Team Providers Care Affiliate Manager Name Role Phone Provider, No Pcp Primary Care Provider Unavailab le Source Comments [facility],non-owned Affiliates and Associated Physician Practices is amultiple site organization consisting of ambulatory clinics and hospital sitesin [place], [place], [place] and [place]. This disclosure is being madepursuant to the Care Everywhere program and may not contain all information available regarding this patient. Last updated 17.[facility] Allergies Active Allergy Reactions Criticality Noted Date Comments Atorvastatin Nausea and/or Vomiting Low 02/24/2024 Nausea only Medications * Be aware that medications may not be up to date on this document. Alwaysverify current medications with the patient. hydrocodone-ac etaminophen (NORCO) 5-325 MG tablet Take 1 Tab by mouth every 4 hours as needed for Pain Earliest Fill Date: 10/26/14 120 Tab 0 10/27/19 15 Active morphine CR 12hr (MS CONTIN) 30 MG tablet Take 30 mg by mouth every 12 hours 12/25/19 15 Active metoprolol succinate XL 24hr (TOPROL XL) 25 MG tablet Take 1 Tab by mouth 2 times daily 30 Tab 0 04/25/19 16 Active Additional Information Patient not taking.Reported on 2024 certolizumab pegol (CIMZIA PREFILLED) injection Inject 400 mg subcutaneously every 28 days 6 Syringe 3 06/22/19 16 Active Additional Information Patient not taking.Reported on 2024 guaiFENesin-co deine (ROBITUSSIN AC) 100-10 MG/5ML syrup Take 10 mL by mouth every 6 hours as needed for Cough 240 mL 1 12/12/19 16 Active Additional Information Patient not taking.Reported on 2024 traZODone (DESYREL) 150 MG tabletIndicati ons:Insomnia 2 tablets at bedtime Reasons: Trouble Sleeping 180 Tab 2 12/14/19 16 Active escitalopram (LEXAPRO) 20 MG tablet TAKE 1 TABLET BY MOUTH DAILY 90 Tab 1 01/16/20 16 Active Additional Information Patient not taking.Reported on 2024 leflunomide (ARAVA) 20 MG tablet TAKE 1 TABLET BY MOUTH EVERY DAY 90 Tab 1 03/27/19 17 Active Additional Information Patient not taking.Reported on 2024 ALPRAZolam (XANAX) 0.25 MG tablet TAKE 1 TABLET BY MOUTH THREE TIMES DAILY NEEDED FOR ANXIETY 90 Tab 3 04/09/19 17 Active meloxicam (MOBIC) 15 MG tablet TAKE 1 TABLET BY MOUTH TWICE DAILY 180 Tab 05/28/19 17 Active carisoprodol (SOMA) 350 MG tablet TAKE 1 TABLET BY MOUTH FOUR TIMES DAILY NEEDED FOR MUSCLE SPASM 120 Tab 3 05/30/19 17 Active Additional Information Patient not taking.Reported on 2024 zolpidem CR (AMBIEN CR) 12.5 MG tablet TAKE 1 TABLET BY MOUTH EVERY NIGHT AT BEDTIME 30 Tab 3 06/26/19 17 Active Additional Information Patient not taking.Reported on 2024 meloxicam (MOBIC) 15 MG tablet TAKE 1 TABLET BY MOUTH TWICE DAILY 60 Tab 06/26/19 17 Active Additional Information Patient not taking.Reported on 2024 aspirin EC (Ecotrin) 81 MG tablet Take 1 (one) tablet by mouth once daily Active Cholecalcifero l 50 MCG (2000 UT) Take 1 (one) tablet by mouth once daily Active vitamin B-12 (Cyanocobalami n) 500 MCG tablet Take 1 (one) tablet by mouth once daily Active cyclobenzaprin e (Flexeril) 5 MG tablet TAKE 1 TABLET(5 MG) BY MOUTH EVERY NIGHT 03/07/19 24 Active folic acid (Folvite) 1 MG tablet Take 1 (one) tablet by mouth once daily Active gabapentin (Neurontin) 600 MG tablet TAKE 1 TABLET BY MOUTH EVERY MORNING AND 2 TABLETS EVERY NIGHT AT BEDTIME 04/18/19 25 Active Relistor 150 MG tablet Take 3 (three) tablets by mouth once daily Active methylPREDNISo lone (Medrol) 4 MG tablet Take 1 (one) tablet to 2 (two) tablets by mouth once daily 03/09/19 25 Active ondansetron, disintegrating , (Zofran ODT) 4 MG tablet Take 1 (one) tablet by mouth every 8 hours as needed Active pantoprazole EC (Protonix) 40 MG tablet Take 1 (one) tablet by mouth as needed 11/08/19 24 Active Pyridoxine HCl 100 MG Take 0.5 (one-half) tablet by mouth once daily Active mupirocin (Bactroban) 2 % ointment Apply to affected area 3 times daily 06/25/19 25 025 Active Problems Problem Noted Date Diagnosed Date Other chronic pain 08/21/2023 Overview (2024): UDS per pain [facility] Pain meds per pain mgment Followed by pain mgment Anxiety 11/18/2022 GERD without esophagitis 04/02/2022 Idiopathic neuropathy 04/02/2022 Other hyperlipidemia 04/02/2022 Primary insomnia 04/02/2022 Rheumatoid arthritis involving multiple joints 0 04/02/2022 Medication monitoring encounter 12/12/2015 Encounters Date Type Department Care Team Description 07/03/2024 Results Follow-Up [facility] - General Dermatology [address] [place] [address] David Whalen PA-C 2024 9:00 AM CDT Office Visit [facility] - General Dermatology [address] [place] [address] David Whalen PA-C Neoplasm of uncertain behavior of skin (Primary Dx); Actinic keratosis; Melanocytic nevi of trunk; Seborrheic keratoses 2024 Travel 06/30/2024 Travel from Last 3 Months Family History Medical History Relation Name Comments Hypertension Father Hypertension Mother Relation Name Status Comments Brother Alive Daughter Alive Father Alive Mother Alive Sister Alive Social History Tobacco Use Types Packs/Day Years Used Date Smoking Tobacco: Former Smokeless Tobacco: Never Tobacco Cessation:Ready to Q uit: No; Counseling Given: Yes Comments:e-cig Alcohol Use Standard Drinks/Week Comments No 0 (1 standard drink = 0.6 oz pur e alcohol) Comments No Sex and Gender Information Value Date Recorded Sex Assigned at Not on file Legal Sex Female 2:08 PM CDT Gender Identity Not on file Sexual Orientation Not on file Last Filed Vital Signs Vital Sign Reading Time Taken Comments Blood Pressure 97/82 12/12/2015 3:49 PM CDT Pulse 90 06/20/2015 2:48 PM CDT Temperature - - Respiratory Rate - - Oxygen Saturation 95% 06/20/2015 2:48 PM CDT Inhaled Oxygen Concentration - - Weight 73 kg (160 lb 14.4 oz) 12/12/2015 3:49 PM CDT Height 167.6 cm (5' 6) 12/12/2015 3:49 PM CDT Body Mass Index 25.97 12/12/2015 3:49 PM CDT Plan of Treatment Upcoming Encounters Date Type Department Care Team (Late st Contact Info) Description 10/05/2024 11:00 AM CDT Office Visit [facility] - General Dermatology [address], [address] [address] David Whalen PA-C [address] [address] Health Maintenance Due Date Last Done Comments COLOGUARD (AGES 45-75) - COL ON CA SCREENING 1960 COLON MONITORING 1960 COLONOSCOPY - COLON CA SCREENING 1960 CT COLONOGRAPHY - COLON CA SCREENING 1960 Colorectal Cancer Screening 1960 FIT - COLON CA SCREENING 1960 FLEX SIG - COLON CA SCREENING 1960 LIPID TESTING 1960 MAMMOGRAM 1960 PAP SMEAR 1960 HIV SCREENING 07/02/1975 HEPATITIS C SCREENING 06/27/1978 DTAP/TDAP/TD VACCINES (1 - Tdap) 07/02/1979 PNEUMOCOCCAL VACCINE 50+ (1 of 1 - PCV) 2010 ZOSTER VACCINE (1 of 2) 2010 COVID-19 VACCINE (2023-2 5 season) 2023 DEPRESSION SCREENING 02/12/2024 MEDICARE AWV CALENDAR YEAR 2024 Respiratory Syncytial Virus (RSV) Vaccine Pt: or over 60 yrs (1 - 1-dose 75+ series) 07/02/2035 INFLUENZA VACCINE Completed 02/24/2024, 01/23/2023, 04/02/2022 HEPATITIS B VACCINE Aged Out No longe r eligible based on patient's age to complete this topic HIB VACCINE Aged Out No longer eligi ble based on patient's age to complete this topic HPV VACCINE Aged Out No longer eligi ble based on patient's age to complete this topic MENINGOCOCCAL (Group B) VACCINE SHARED DECISION-MAKING Aged Out No longer eligible based on patient's age to complete this topic MENINGOCOCCAL GROUPS A/C/Y/W VACCINE Aged Out No longer eligible b ased on patient's age to complete this topic Procedures Procedure Name Priority Date/Time Associated Diagnosis Comments [place] DESTROY PREMALIG LESION, 1ST LESION Routine 2024 11:15 AM CDT Actinic keratosis NJ TANGNTL BX SKIN SINGLE LES Routine 2024 11:15 AM CDT Neoplasm of uncertain behavior of skin DERMATOPATHOLOGY Routine 2024 9:57 AM CDT Neoplasm of uncertain behavior of skin from Last 3 Months Results * NJ DESTROY PREMALIG LESION, 1ST LESION (2024 11:15 AM CDT) Narrative David Whalen PA-C - 2024 11:15 AM CDT David Whalen PA-C 2024 11:17 AM Derm - Destruction Pre-malignant Date/Time: 2024 11:15 AM Performed by: David Whalen PA-C Authorized by: David Whalen PA-C Consent given by: patient Consent type: verbal Risks discussed with patient: scar formation, skin color change, need for further testing/treatment, pain, blistering and infection. Consent type: verbal Procedure details: Location information Right cheek x 1 Number of standard lesions: 1 Total number of lesions: 1 Destruction method: cryotherapy Cryotherapy cycles: 1 Cryotherapy time per cycle (seconds): 5-7 Complications: none Wound care discussed with patient? yes David Whalen PA-C PROCEDURE/MINOR SURGICAL ORDERA BLES Final Result * NJ TANGNTL BX SKIN SINGLE LES (2024 11:15 AM CDT) Narrative David Whalen PA-C - 2024 11:15 AM CDT David Whalen PA-C 2024 11:17 AM Derm - Shave Biopsy Date/Time: 2024 11:15 AM Performed by: David Whalen PA-C Authorized by: David Whalen PA-C Consent given by: patient Consent type: verbal Risks discussed with patient: bleeding, need for further testing/treatment, infection, scar formation, skin color change and non-diagnostic biopsy. Procedure details: Skin prep: isopropyl alcohol Anesthesia: lidocaine 1% with epi Location information Right 2nd toe x 1 Number of standard lesions: 1 Total number of lesions: 1 Instrument(s) used: flexible razor blade Hemostasis achieved with aluminum chloride Wound dressing: bandage and petrolatum EBL: no blood loss Complications: none Wound care discussed with patient? yes Specimen(s) sent to pathology Patient preferred contact method(s): phone and MyChart David Whalen PA-C PROCEDURE/MINOR SURGICAL ORDERA BLES Final Result * DERMATOPATHOLOGY (Specimen Count = 1) (2024 9:57 AM CDT) Case Report Dermatopathology Report Case: [id number] Authorizing Provider: David Whalen PA-C Collected: 2024 09:57 AM Ordering Location: [facility] - Received: 2024 09:57 AM General Dermatology Pathologist: Cuca Mcgrath MD Specimen: Skin, Right 2nd toe 4:06 PM CDT DERMATOPATHOLOGY LABORATORY Final Diagnosis Specimen A. SKIN, Right 2nd toe: ULCER WITH SUPERFICIAL DERMAL NECROSIS (L98.499) HEALING SKIN CHANGES (L90.5) (see microscopic description and comment) 4:06 PM CDT DERMATOPATHOLOGY LABORATORY at 1606 CDT Clinical History Venous Stasis Ulcer, R/O NMSC 5 4:06 PM T DERMATOPATHOLOGY LABORATORY Gross Description Specimen A: Received is one formalin filled container labeled with the patient's name and designated Right 2nd toe. The specimen consists of a shave biopsy measuring 10x8x2 mm. Jar 0. 5 4:06 PM T DERMATOPATHOLOGY LABORATORY Microscopic Description Specimen A. SKIN, Right 2nd toe: There is an ulcer, beneath which there are vascular proliferation, fibroblasts, and an edematous stroma. There is epidermal hyperplasia beneath which there are vascular proliferation, fibroblasts, and an edematous stroma. There is no evidence of epithelial dysplasia or malignancy in the sections examined. COMMENT: The overall histologic features are somewhat nonspecific. If this specimen is sampled from a larger lesion, these findings may not be sales promotion representative of the entire lesion. Clinicopathologic correlation is recommended. 4:06 PM T DERMATOPATHOLOGY LABORATORY Disclaimer An external and internal positive and negative controls are appropriate for the histochemical, immunohistochemical and immunofluorescence stain(s) in this case (if any), except where stated explicitly. The performance characteristics of the stain(s) cited in this report were developed and its performance characteristic determined by the Dermatopathology Laboratory at [facility], directed by Dr. Trace Burroughs. These tests need not be, and therefore are not, approved by the [place] Food and Drug Administration. The tests are used for clinical purposes. Billing Codes Specimen Charges Stain Charges 37784 1 5 4:06 PM CDT DERMATOPATHOLOGY LABORATORY Embedded Images 5 4:06 PM CDT DERMATOPATHOLOGY LABORATORY Pathology/Cytolo gy TISSUE SPECIMEN FROM SKIN / Unknown Collection / Unknown 2024 9:57 AM CDT 2024 9:57 AM CDT us David Whalen PA-C LAB - PATHOLOGY/CYTOLOGY ORDERA BLES Final Result DERMATOPATHOLOGY LABORATORY [facility] - Department of Dermatology [address] [place] [address], [facility] [phone] from Last 3 Months Insurance [employer]NAGED MEDICARE ADV MEDICAID - [place] Care Teams Affiliate Manager Relationship Specialty Start Date End Date Provider, No Pcp PCP - General 07/01/24
--- OUTSIDE RECORDS SUMMARY | 2024-07-15 14:15 | XMS_ITS | Encounter Summary ---
Author Organization [facility] Address [address] [place] [address] Phone Care Team Providers Care Pattern Wheel Maker Name Role Phone Patrick Bowden MD Primary Care Provider [phone] Zac Rojo MD Unavailable [phone] Ivon Smith APRN, [facility] Unavailable [phone] Reason for Visit * Reason Comments Medication Refill Encounter Details Date Type Department Care Team (Late st Contact Info) Description 04/16/2022 Refill [facility] - [facility] - [place] [address] [place] [address] Patrick Bowden MD [address] [facility] [place] [address] Medication Refill Social History Tobacco [...] on file Sexual Orientation Not on file COVID-19 Exposure Response Date Recorded In the last 10 days, have yo u been in contact with someone who was confirmed or suspected to have Coronavirus/COVID-19? No / Unsure 04/02/2022 1:52 PM DIRECTOR OPERATING documented as of this encounter Plan of Treatment Upcoming Encounters Date Type Department Care Team (Late st Contact Info) Description 08/21/2024 1:00 PM CDT Office Visit [facility] - Obstetrics & Gynecology [facility] [address] [place] [address] Ivon Smith, MECHANICAL SYSTEM TECHNICIAN, PARTS ORDER AND STOCK CLERK [address] [place] [address] 08/24/2024 10:30 AM CDT Office Visit [facility] Internal Medicine [facility] [address] [place] [address] Patrick Bowden MD [address] [facility] [place] [address] documented as of this encounter Visit Diagnoses Not on filedocumented in this encounter Additional Health Concerns Assessment Noted Time PHQ-9 Depression Total Score: 6 04/02/19 2:00 PM DIRECTOR OPERATING documented as of this encounter Care Teams Pattern Wheel Maker Relationship Specialty Start Date End Date Patrick Bowden MD [address] [place] [address] PCP - General Internal Medicine 04/02/22 Zac Rojo MD [address] [place] [address] Consulting Physician Obstetrics & Gynecology 06/19/24 Ivon Smith, MECHANICAL SYSTEM TECHNICIAN, PARTS ORDER AND STOCK CLERK [address] [place] [address] Nurse Practitioner Advanced Practice Nurse 07/09/24 documented as of this encounter
--- OUTSIDE RECORDS SUMMARY | 2024-07-15 14:15 | XMS_ITS | Encounter Summary ---
Author Organization [facility] Address [address] Jarquinn: Epic Prelude ADT [place] [address] Care Team Providers Care Make Up Operator Name Role Phone Loida Plummer MD Primary Care Provider [phone] Encounter Details Date Type Department Care Team (Late st Contact Info) Description 06/13/1995 Outpatient Historical Adam Hackett MD Social History Tobacco Use Types Packs/Day Years Used Date Smoking Tobacco: Never Assessed Comments Unknown Sex and Gender Information Value Date Recorded Sex Assigned at Not on file Legal Sex Female 4:57 AM DYE CAN OPERATOR Gender Identity Not on file Sexual Orientation Not on file documented as of this encounter Plan of Treatment Not on file documented as of this encounter Visit Diagnoses Not on filedocumented in this encounter Care Teams Make Up Operator Relationship Specialty Start Date End Date Loida Plummer MD PCP - General Rheumatology 11/26/18 documented as of this encounter
--- OUTSIDE RECORDS SUMMARY | 2024-07-15 14:15 | XMS_ITS | Encounter Summary ---
Author Organization [facility] Address [address] Attn: Epic Prelude ADT [place] [address] Care Team Providers Care Manager Outpatient Name Role Phone Loida Plummer MD Primary Care Provider [phone] Encounter Details Date Type Department Care Team (Late st Contact Info) Description 03/22/1994 Outpatient Historical Adam Hackett MD Social History Tobacco Use Types Packs/Day Years Used Date Smoking Tobacco: Never Assessed Comments Unknown Sex and Gender Information Value Date Recorded Sex Assigned at Not on file Legal Sex Female 4:57 AM SENIOR ACCOUNTING CLERK Gender Identity Not on file Sexual Orientation Not on file documented as of this encounter Plan of Treatment Not on file documented as of this encounter Visit Diagnoses Not on filedocumented in this encounter Care Teams Manager Outpatient Relationship Specialty Start Date End Date Loida Plummer MD PCP - General Rheumatology 11/26/18 documented as of this encounter
--- OUTSIDE RECORDS SUMMARY | 2024-07-15 14:15 | XMS_ITS | Encounter Summary ---
Author Organization [facility] Address [address] [place] [address] Phone Care Team Providers Care Double Backer Name Role Phone Patrick Bowden MD Primary Care Provider Zac Rojo MD Unavailable [phone] Ivon Smith APRN, SONOGRAPHY TECHNICIAN Unavailable [phone] Reason for Visit * Reason Comments Medication Refill Encounter Details Date Type Department Care Team (Late st Contact Info) Description 10/21/2022 Refill [facility] - [place] [address] [place] [address] Patrick Bowden MD [address] [facility] [place] [address] Medication Refill Social History Tobacco [...] Telephone Encounter - Kamryn Orozco RN - 10/22/2022 8:38 AM CDT Medication failed the protocol, provider to review and approve the medication order if appropriate. Requested Prescriptions Pending Prescriptions Disp Refills meloxicam (MOBIC) 15 MG Tablet [Pharmacy Med Name: MELOXICAM 15MG TABLETS] 90 Tablet 1 Sig: Take 1 Tablet by mouth daily. NSAIDs Protocol Failed - 10/21/2022 12:48 PM Failed - Normal serum creatinine in past 12 months No results found for: CREATININE Failed - AST less than 55 or ALT less than 90 in past 12 months No results found for: SGOTAST No results found for: SGPTALT Failed - HGB greater than 10 or HCT greater than 30 in past 12 months No results found for: HEMOGLOBIN, HEMATOCRIT Passed - Visit with relevant provider in past 12 months or upcoming 90 days Recent Visits Date Type Provider Dept 07/19/22 Office Visit Patrick Bowden MD [facility] 04/02/22 Office Visit Patrick Bowden MD [facility] Showing recent visits within past 365 days and meeting all other requirements Future Appointments No visits were found meeting these conditions. Showing future appointments within next 90 days and meeting all other requirements Passed - No matching NSAID med order in past 45 days No matching medication orders between 09/07/2022 8:38 AM and 10/22/2022 8:38 AM documented in this encounter Plan of Treatment Upcoming Encounters Date Type Department Care Team (Late st Contact Info) Description 08/21/2024 1:00 PM CDT Office Visit [facility] - Obstetrics & Gynecology [facility] [address] [place] [address] Ivon Smith, FENCE SETTER, SONOGRAPHY TECHNICIAN [address] [place] [address] 08/24/2024 10:30 AM CDT Office Visit [facility] - Internal Medicine [facility] [address] [place] [address] Patrick Bowden MD [address] [place] [address] documented as of this encounter Visit Diagnoses Not on filedocumented in this encounter Additional Health Concerns Assessment Noted Time PHQ-9 Depression Total Score: 6 04/02/19 23 2:00 PM KILN OPERATOR documented as of this encounter Care Teams Double Backer Relationship Specialty Start Date End Date Patrick Bowden MD [address] [place] [place] [address] PCP - General Internal Medicine 04/02/22 Zac Rojo MD [address] [place] [address] Consulting Physician Obstetrics & Gynecology 06/19/24 Ivon Smith APRN, SONOGRAPHY TECHNICIAN [address] [place] [address] Nurse Practitioner Advanced Practice Nurse 07/09/24 documented as of this encounter
--- OUTSIDE RECORDS SUMMARY | 2024-07-15 14:15 | XMS_ITS | Encounter Summary ---
Author Organization [facility] Address [address] [place] [address] Phone Care Team Providers Care Trimmer And Borer Machine Operator Name Role Phone Patrick Bowden MD Primary Care Provider [phone] Zac Rojo MD Unavailable [phone] Ivon Smith APRN, [facility] Unavailable [phone] Reason for Visit * Reason Comments Medication Refill Encounter Details Date Type Department Care Team (Late st Contact Info) Description 05/15/2022 Refill [facility] - [place] [address] [place] [address] Patrick Bowden MD [address] [facility] [place] [address] Medication Refill Social History Tobacco [...] Description 08/21/2024 1:00 PM CDT Office Visit [facility] Medical [facility] - Obstetrics & Gynecology [facility] [address] [facility] [place] [address] Ivon Smith, MEDICAL RECORD ADMINISTRATOR, GLASS CUTTING MACHINE OPERATOR [address] [place] [address] 08/24/2024 10:30 AM CDT Office Visit [facility] Medical [facility] - Internal Medicine [facility] [address] [place] [address] Patrick Bowden MD [address] [place] [address] documented as of this encounter Visit Diagnoses Not on filedocumented in this encounter Additional Health Concerns Assessment Noted Time PHQ-9 Depression Total Score: 6 04/02/19 2:00 PM OILER AND GREASER documented as of this encounter Care Teams Trimmer And Borer Machine Operator Relationship Specialty Start Date End Date Ptarick Bowden MD [address] [place] [address] PCP - General Internal Medicine 04/02/22 Zac Rojo MD [address] [place] [address] Consulting Physician Obstetrics & Gynecology 06/19/24 Ivon Smith, MEDICAL RECORD ADMINISTRATOR, GLASS CUTTING MACHINE OPERATOR [address] [facility] [place] [address] Nurse Practitioner Advanced Practice Nurse 07/09/24 documented as of this encounter
--- OUTSIDE RECORDS SUMMARY | 2024-07-15 14:15 | XMS_ITS | Encounter Summary ---
Author Organization [facility] Address [address] Attn: Epic Prelude ADT [place] [address] Care Team Providers Care Municipal Services Manager Name Role Phone Loida Plummer MD Primary Care Provider [phone] Encounter Details Date Type Department Care Team (Late st Contact Info) Description 09/12/1995 Outpatient Historical Adam Hackett MD Social History Tobacco Use Types Packs/Day Years Used Date Smoking Tobacco: Never Assessed Comments Unknown Sex and Gender Information Value Date Recorded Sex Assigned at Not on file Legal Sex Female 4:57 AM LATCHER Gender Identity Not on file Sexual Orientation Not on file documented as of this encounter Plan of Treatment Not on file documented as of this encounter Visit Diagnoses Not on filedocumented in this encounter Care Teams Municipal Services Manager Relationship Specialty Start Date End Date Loida Plummer MD PCP - General Rheumatology 11/26/18 documented as of this encounter
--- OUTSIDE RECORDS SUMMARY | 2024-07-15 14:15 | XMS_ITS | Encounter Summary ---
Author Organization [facility] Address [address] [place] [address] Phone Care Team Providers Care Roller Printing Supervisor Name Role Phone Patrick Bowden MD Primary Care Provider [phone] Zac Rojo MD Unavailable [phone] Ivon Smith APRN, TABLE GAMES DEALER Unavailable [phone] Reason for Visit * Reason Comments Medication Refill Encounter Details Date Type Department Care Team (Late st Contact Info) Description 11/29/2023 Refill [facility] Medical Group - Internal Medicine - [place] [address] [place] [address] Mary Lou Land, [facility] [address] [place] [address] Medication Refill Social History Tobacco Use Types Packs/Day Years Used Date Smoking Tobacco: Former Cigarettes Q uit: 08/11/2020 Passive Smoke Exposure: Past Smokeless Tobacco: Never Alcohol Use Standard Drinks/Week Comments Never 0 (1 standard drink = 0.6 oz pur e alcohol) [facility] Utilities Answer Date Recorded In the past 12 months has [employer], gas, oil, or water [employer] threatened to shut off services in your home? Patient declined 01/28/2023 Social Connection and Isolation Panel [NHANES] A nswer Date Recorded In a typical week, how many times do you talk on the phone with family, friends, or neighbors? Patient declined 01/28/2023 How often do you get togethe r with friends or relatives? Patient declined 01/28/2023 How often do you attend orthodox or druze serv ices? Patient declined 01/28/2023 Do you belong to any clubs o r organizations such as orthodox groups, unions, fraternal or athletic groups, or [...] Total Score - Questions 1-9 0 01/11 [facility] of Occupat ional Health - Occupational Stress [...] place to sleep or slept in a skilled nursing (including now)? Patient declined 01/28/2023 Education Answer [...] Description 08/21/2024 1:00 PM CDT Office Visit [facility] Medical Group - Obstetrics & Gynecology [facility] [address] [place] [address] Ivon Smith, MANAGER FINE DINING, TABLE GAMES DEALER [address] [place] [address] 08/24/2024 10:30 AM CDT Office Visit [facility] Medical Group - Internal Medicine - [place] [address] [place] [address] Patrick Bowden MD [address] [place] [address] documented as of this encounter Visit Diagnoses Not on filedocumented in this encounter Additional Health Concerns Assessment Noted Time PHQ-9 Depression Total Score: 0 12/18/20 23 11:30 AM FAMILY DEVELOPMENT EXTENSION SPECIALIST documented as of this encounter Care Teams Roller Printing Supervisor Relationship Specialty Start Date End Date Patrick Bowden MD [address] [place] [address] PCP - General Internal Medicine 04/02/22 Zac Rojo MD [address] [place] [address] Consulting Physician Obstetrics & Gynecology 06/19/24 Ivon Smith, MANAGER FINE DINING, TABLE GAMES DEALER [address] [place] [address] Nurse Practitioner Advanced Practice Nurse 07/09/24 documented as of this encounter
--- OUTSIDE RECORDS SUMMARY | 2024-07-15 14:15 | XMS_ITS | Clinical Summary ---
Author Organization [facility] Address [address] [place] [address] Phone Care Team Providers Care Play Therapist Name Role Phone Loida Plummer MD Primary Care Provider [phone] Allergies No known active allergies Medications meloxicam (MOBIC) 15 mg tablet Take 1 Tablet by mouth 2 times daily. 05/27/2016 Active ALPRAZolam (XANAX) 0.25 mg tablet Take 0.25 mg by mouth 3 times daily as needed. 04/09/2016 Active carisoprodol (SOMA) 350 mg tablet Take 1 Tablet by mouth 3 times daily as needed. 05/29/2016 Active HYDROcodone-tanisha taminophen (NORCO) 5-325 mg tablet Take 1 Tablet by mouth every 4 hours as needed. 10/26/2014 Active leflunomide (ARAVA) 20 mg Tablet Take 1 Tablet by mouth daily. 03/27/2016 Active morphine (MS CONTIN) 30 mg Controlled Release tablet Take 30 mg by mouth 2 times daily. 12/24/2014 Active traZODone (DESYREL) 150 mg tablet Take 2 Tablets by mouth daily at bedtime. 12/14/2015 Active zolpidem (AMBIEN) 10 mg tablet Take 1 Tablet by mouth daily at bedtime. 0 06/02/2018 Active APPLE CIDER VINEGAR ORAL Take by mouth daily. Active COCONUT OIL ORAL Take by mouth daily. Active pyridoxine, vitamin B6, (VITAMIN B6) 100 mg Tablet Take 50 mg by mouth daily. Active folic acid (FOLVITE) 1 mg tablet Take 1 mg by mouth daily. Active Social History Tobacco Use Types Packs/Day Years Used Date Smoking Tobacco: Former Smokeless Tobacco: Never Comments Unknown Sex and Gender Information Value Date Recorded Sex Assigned at Not on file Legal Sex Female 4:57 AM WEATHER ALGORITHM SCIENTIST Gender Identity Not on file Sexual Orientation Not on file Last Filed Vital Signs Vital Sign Reading Time Taken Comments Blood Pressure 107/65 01/19/2022 9:14 AM WEATHER ALGORITHM SCIENTIST Pulse 72 01/19/2022 9:14 AM WEATHER ALGORITHM SCIENTIST Temperature 36.8 C (98.2 F) 01/19/2022 9:14 AM WEATHER ALGORITHM SCIENTIST Respiratory Rate 18 01/19/2022 9:14 AM WEATHER ALGORITHM SCIENTIST Oxygen Saturation - - Inhaled Oxygen Concentration - - Weight 63.5 kg (140 lb) 01/19/2022 9:14 AM WEATHER ALGORITHM SCIENTIST Height 167.6 cm (5' 6) 01/19/2022 9:14 AM WEATHER ALGORITHM SCIENTIST Body Mass Index 22.6 01/19/2022 9:14 AM WEATHER ALGORITHM SCIENTIST Plan of Treatment Health Maintenance Due Date Last Done Comments DTAP/TDAP/TD VACCINES (1 - Tdap) 07/02/1979 HPV/Cotest (21-29) 1981 CERVICAL CANCER SCREENING 1990 HPV/Cotest (30-65) 1990 PAP SMEAR 1990 BREAST CANCER SCREENING 2000 COLORECTAL SCREENING 2005 Colorectal Cancer Screening 2005 FIT-DNA Q 3 years 2005 FIT/FOBT Q 1 year 2005 Flex Sig/CT Colonography Q 5 years 2005 ZOSTER VACCINE (1 of 2) 2010 INFLUENZA VACCINE (#1) 2023 04/02/2022 RSV VACCINE (60+ or ) (1 - 1-dose 75+ series) 07/02/2035 Insurance [employer] [facility] MEDICAID GENERIC MEDICARE MANAGED CARE Care Teams Play Therapist Relationship Specialty Start Date End Date Loida Plummer MD PCP - General Rheumatology 11/26/18
--- OUTSIDE RECORDS SUMMARY | 2024-07-15 14:15 | XMS_ITS | Encounter Summary ---
Author Organization [facility] Address [address] [place] [address] Phone Care Team Providers Care Assistant Professor Of Philosophy Name Role Phone Patrick Bowden MD Primary Care Provider [phone] Zac Rojo MD Unavailable [phone] Ivon Smith APRN, BALL TRUING MACHINE OPERATOR Unavailable [phone] Reason for Visit * Reason Comments Medication Refill Encounter Details Date Type Department Care Team (Late st Contact Info) Description 02/26/2023 Refill [facility] Medical Group - Internal Medicine - [place] [address] [place] [address] Patrick Bowden MD [address] [place] [place] [address] Medication Refill Social History Tobacco Use Types Packs/Day Years Used Date Smoking Tobacco: Former Cigarettes Q uit: 08/11/2020 Passive Smoke Exposure: Past Smokeless Tobacco: Never Alcohol Use Standard Drinks/Week Comments Never 0 (1 standard drink = 0.6 oz pur e alcohol) [facility] Utilities Answer Date Recorded In the past 12 months has [email or web address], gas, oil, or water [employer] threatened to shut off services in your home? Patient declined 01/28/2023 Social Connection and Isolation Panel [NHANES] A nswer Date Recorded In a typical week, how many times do you talk on the phone with family, friends, or neighbors? Patient declined 01/28/2023 How often do you get togethe r with friends or relatives? Patient declined 01/28/2023 How often do you attend scientologist or latter-day serv ices? Patient declined 01/28/2023 Do you belong to any clubs o r organizations such as scientologist groups, unions, fraternal or athletic groups, or [...] Total Score - Questions 1-9 0 01/11 [facility] of Occupat ional Health - Occupational [...] place to sleep or slept in a custodial (including now)? Patient declined 01/28/2023 Education Answer [...] Telephone Encounter - Kamryn Orozco RN - 02/26/2023 8:08 AM CST Medication failed the protocol, provider to review and approve the medication order if appropriate. Requested Prescriptions Pending Prescriptions Disp Refills traZODone (DESYREL) 150 MG Tablet [Pharmacy Med Name: TRAZODONE 150MG (HUNDRED- FIFTY) TAB] 60 Tablet 2 Sig: TAKE 2 TABLETS BY MOUTH EVERY NIGHT Serotonin Modulators (6 Month Refill Only) Protocol Failed - 02/26/2023 1:29 AM Failed - Has an encounter in the past 6 months with a depression or anxiety visit diagnosis Passed - Visit with relevant provider in past 6 months or upcoming 90 days Recent Visits Date Type Provider Dept 01/28/23 Office Visit Patrick Bowden MD [facility] Showing recent visits within past 182 days and meeting all other requirements Future Appointments No visits were found meeting these conditions. Showing future appointments within next 90 days and meeting all other requirements Passed - No PRN Use for Trazodone Passed - Patient has established therapy with Serotonin Modulators for at least 6 months NESS PROGRAM MANAGER documented in this encounter Plan of Treatment Upcoming Encounters Date Type Department Care Team (Late st Contact Info) Description 08/21/2024 1:00 PM CDT Office Visit [facility] Medical Group - Obstetrics & Gynecology [facility] [address] [place] [address] Ivon Smith, REMELTER, BALL TRUING MACHINE OPERATOR [address] [place] [address] 08/24/2024 10:30 AM CDT Office Visit [facility] Medical [facility] Internal Medicine [facility] [address] [place] [address] Patrick Bowden MD [address] [place] [address] documented as of this encounter Visit Diagnoses Not on filedocumented in this encounter Additional Health Concerns Assessment Noted Time PHQ-9 Depression Total Score: 0 01/29/20 11:30 AM WELLNESS PROGRAM MANAGER documented as of this encounter Care Teams Assistant Professor Of Philosophy Relationship Specialty Start Date End Date Patrick Bowden MD [address] [place] [address] PCP - General Internal Medicine 04/02/22 Zac Rojo MD [address] [place] [address] Consulting Physician Obstetrics & Gynecology 06/19/24 Ivon Smith APRN, BALL TRUING MACHINE OPERATOR [address] [place] [address] Nurse Practitioner Advanced Practice Nurse 07/09/24 documented as of this encounter
--- OUTSIDE RECORDS SUMMARY | 2024-07-15 14:15 | XMS_ITS | Encounter Summary ---
Author Organization [facility] Address [address] Attn: Epic Prelude ADT JOE FARIAS [address] Care Team Providers Care Plant Physiology Teacher Name Role Phone Loida Plummer MD Primary Care Provider [phone] Encounter Details Date Type Department Care Team (Late st Contact Info) Description 04/29/1997 Outpatient Historical Conversion, History Adam Hackett MD Social History Tobacco Use Types Packs/Day Years Used Date Smoking Tobacco: Never Assessed Comments Unknown Sex and Gender Information Value Date Recorded Sex Assigned at Not on file Legal Sex Female 4:57 AM CELL PREPARER Gender Identity Not on file Sexual Orientation Not on file documented as of this encounter Plan of Treatment Not on file documented as of this encounter Visit Diagnoses Not on filedocumented in this encounter Care Teams Plant Physiology Teacher Relationship Specialty Start Date End Date Loida Plummer MD PCP - General Rheumatology 11/26/18 documented as of this encounter
--- OUTSIDE RECORDS SUMMARY | 2024-07-15 14:15 | XMS_ITS | Clinical Summary ---
Author Organization [facility] Address [address] [place] [address] Care Team Providers Care Banking Representative Name Role Phone Patrick Bowden MD Primary Care Provider [phone] Allergies Active Allergy Reactions Criticality Noted Date Comments Atorvastatin Nausea only Low 02/24/2024 Medications methylnaltrexone (Relistor) 150 mg tablet Take 450 mg by mouth daily Active gabapentin (NEURONTIN) 600 mg tablet Take 1 tablet (600 mg total) by mouth 2 (two) times a day 1 tablet in the morning and 2 at night Active ondansetron ODT (ZOFRAN-ODT) 4 mg disintegrating tablet Take 1 tablet (4 mg total) by mouth every 8 (eight) hours as needed for nausea or vomiting Active HYDROcodone-aceta minophen (NORCO) 5-325 mg per tabletIndications :Pain Take 1 tablet by mouth every 6 (six) hours as needed Active APPLE CIDER VINEGAR ORAL Take by mouth daily Active COCONUT OIL ORAL Take by mouth daily Active aspirin 81 mg enteric coated tablet Take 1 tablet (81 mg total) by mouth daily Active cholecalciferol (VITAMIN D-3) 2000 unit tablet Take 1 tablet (2,000 Units total) by mouth daily Active cyanocobalamin (Vitamin B-12) 500 mcg tablet Take 1 tablet (500 mcg total) by mouth daily Active pyridoxine (VITAMIN B-6) 100 mg tablet Take 0.5 tablets (50 mg total) by mouth daily Active morphine ER (MS CONTIN) 30 mg 12 hr tablet Take 1 tablet (30 mg total) by mouth 2 (two) times a day 10/31/19 23 Active traZODone (DESYREL) 150 mg tablet Take 2 tablets (300 mg total) by mouth 11/02/19 23 Active leflunomide (ARAVA) 20 mg tabletIndications :Rheumatoid Arthritis Take 1 tablet (20 mg total) by mouth daily 90 tablet 1 11/17/19 23 Active folic acid (FOLVITE) 1 mg tablet Take 1 tablet (1 mg total) by mouth daily 90 tablet 3 11/17/19 23 Active cyclobenzaprine (FLEXERIL) 5 mg tablet TAKE 1 TABLET(5 MG) BY MOUTH EVERY NIGHT 30 tablet 3 03/07/[address] (PROTONIX) 40 mg EC tabletIndications :Gastroesophageal reflux disease without esophagitis Take 1 tablet (40 mg total) by mouth as needed (gerd) 90 tablet 1 11/08/19 24 Active meloxicam (MOBIC) 15 mg tablet Take 1 tablet (15 mg total) by mouth daily 90 tablet 1 02/07/20 24 Active methylPREDNISolon e (MEDROL) 4 mg tablet Take 1-2 tablets (4-8 mg total) by mouth daily 180 tablet 1 03/09/19 25 Active ALPRAZolam (XANAX) 0.25 mg tablet TAKE 1 TABLET(0.25 MG) BY MOUTH THREE TIMES DAILY NEEDED FOR ANXIETY 90 tablet 07/08/19 25 Active ALPRAZolam (XANAX) 0.25 mg tablet TAKE 1 TABLET(0.25 MG) BY MOUTH THREE TIMES DAILY NEEDED FOR ANXIETY 90 tablet 06/11/19 25 025 Discontinued mupirocin (BACTROBAN) 2 % ointmentIndicatio ns:Cellulitis of second toe of right foot,Open wound of second toe of right foot, initial encounter Apply topically 3 (three) times a day for 10 days 22 g 06/25/19 25 025 cephalexin (KEFLEX) 500 mg capsuleIndication s:Cellulitis of second toe of right foot,Open wound of second toe of right foot, initial encounter Take 1 capsule (500 mg total) by mouth 4 (four) times a day for 7 days 28 capsule 06/25/19 25 025 Active Problems Problem Noted Date Diagnosed Date High risk medication use 04/23/2023 Assessment & Plan (03/18/2024 7:18 AM DISTRIBUTION ANALYST): Patient is on immunosuppressive medication requiring intensive lab monitoring for medication safety. Assessment & Plan (10/10/2023 3:40 PM CDT): Long-term use of high-risk medication requiring regular monitoring. Labs ordered, no s/s of med tox or infection. Encouraged to work with PCP to make sure all recommended cancer screens and vaccinations are complete. Avoid live-vaccines unless reviewed with medical device sales first. Assessment & Plan (04/23/2023 6:51 AM CDT): Patient is on immunosuppressive medication requiring intensive lab monitoring for medication safety. Acute pain of right shoulder 12/20/2022 Assessment & Plan (12/20/2022 12:49 PM DISTRIBUTION ANALYST): She has messaged with right neck and shoulder pain. Tried two rounds of oral steroids, muscle relaxer, no benefit. Presents today for right shoulder injection. Tolerated well. Seeing Pain Management as well, they will hopefully be able to address her neck if needed. Rheumatoid arthritis involvi ng multiple sites with positive rheumatoid factor 11/18/2022 Assessment & Plan (03/18/2024 7:18 AM DISTRIBUTION ANALYST): Chronic, longstanding for about 30+ years. Stable on Simponi aria infusions. Continue current regimen for now. Assessment & Plan (10/10/2023 3:39 PM CDT): Chronic, longstanding for about 30+ years. Stable on Simponi aria infusions. Continue current regimen for now. Follow up in 6 months and prn. Assessment & Plan (04/23/2023 8:15 PM CDT): Chronic, longstanding for about 30+ years. Stable on Simponi aria infusions. Continue current regimen for now. Assessment & Plan (12/20/2022 12:48 PM DISTRIBUTION ANALYST): Chronic, longstanding for about 30+ years. Previously on Simponi Aria recently restarted. Requests change to have IV benadryl 50 mg prior to infusion. Will update orders. Continue other RA medications. Assessment & Plan (11/18/2022 8:33 PM CDT): Chronic, longstanding for about 30+ years. Previously on Simponi Aria with fairly good control of symptoms, last infusion was in January 2022 and she had labs due to transition between medical device sales. We will get orders rewritten, with the reloading dose. We will continue her steroid, leflunomide, daily meloxicam. She was advised to reach out with any flares. terminal block assembler (current) use of systemic steroids 09/2022 Assessment & Plan (03/18/2024 7:18 AM DISTRIBUTION ANALYST): She is currently on methylprednisolone about 4-8 mg daily, advised to try to alternate 4 mg one day, 2 mg the next and try to start decreasing. She will still occasionally take 8 mg daily when needed. Assessment & Plan (04/23/2023 8:16 PM CDT): She is currently on methylprednisolone about 4-8 mg daily, advised to try to alternate 4 mg one day, 2 mg the next and try to start decreasing. She will still occasionally take 8 mg daily when needed. Assessment & Plan (12/20/2022 6:58 AM DISTRIBUTION ANALYST): She is currently on methylprednisolone about 8 mg daily, sometimes just 4 mg daily. We discussed that I would really like to get her to a goal of 4 mg daily. I feel like this would do much better in regards to her bone health over time. Assessment & Plan (11/18/2022 8:33 PM CDT): She is currently on methylprednisolone about 8 mg daily, sometimes just 4 mg daily. We discussed that I would really like to get her to a goal of 4 mg daily. I feel like this would do much better in regards to her bone health over time. Post-menopausal 11/18/2022 Assessment & Plan (11/18/2022 8:32 PM CDT): Postmenopausal status with long-term use of systemic steroids. DEXA ordered. Patient not necessarily interested in treatment for osteoporosis, but I recommend we obtain for baseline. Screening for tuberculosis 11/18/2022 Anxiety 11/18/2022 Assessment & Plan (11/18/2022 8:31 PM CDT): Dr. Proctor was previously prescribing Xanax 0.25 mg t.i.d. PRN. Patient was pretty much consistently taking as 3 daily, now down to 2 daily. We discussed that typically benzodiazepines are not recommended for daily use, but she has been taking for a long time, and I suspect would have difficulty tapering. I will continue at this current dose, I will not increase dose or number per month. Resolved Problems Problem Noted Date Diagnosed Date Resolved Date Neck pain 12/20/2022 12/20/2022 Encounters Date Type Department Care Team Description 06/28/2024 Results Follow-Up [facility] at [address] [phone] Elizabeth Mariee PA Aerobic and anaerobic culture and gram stain Wound Toe, second, right 06/24/2024 3:26 PM CDT - 06/24/2024 11:59 PM CDT Hospital Encounter [address] [id number] Cellulitis of second toe of right foot; Open wound of second toe of right foot, initial encounter Discharge Disposition: Discharge to home or self care 06/24/2024 3:15 PM CDT Office Visit [facility] at [address] [phone] Deborah Lara NP Cellulitis of second toe of right foot (Primary Dx); Open wound of second toe of right foot, initial encounter 05/27/2024 2:00 PM CDT [facility] at [address] [address] Rheumatoid arthritis involving multiple sites with positive rheumatoid factor (HCC) (Primary Dx) from Last 3 Months Immunizations Immunization Administration Dates Next Due Influenza, Quadrivalent, Spl it, Preservative Free, Intramuscular 01/23/2023,04/02/2022 Influenza, Trivalent, Preservative Free, Intramu scular 02/24/2024 Pneumococcal Conjugate Pcv20 01/28/2023 RSV, Bivalent, Protein Subun it Rsvpref, Diluent (Abrysvo) 02/25/2024 ZOSTER Recombinant 08/09/2023,12/25/2021 Surgical History Surgery Date Site/Laterality Comments NOSE SURGERY Medical History Medical History Date Comments Rheumatoid arthritis (HCC) Neuropathy Hyperlipidemia Depression Family History Medical History Relation Name Comments HORMONES Child Blindness Father Deafness Father Heart failure Father Heart failure Mother Hypertension Mother Relation Name Status Comments Child Alive Father Mother Social History Tobacco Use Types Packs/Day Years Used Date Smoking Tobacco: Former Cigarettes Smokeless Tobacco: Never Tobacco Cessation:Counseling Given: Not Answered AUDIT-C Answer Date Recorded Q1: How often [...] on file Legal Sex Female 7:41 AM DISTRIBUTION ANALYST Gender Identity Female 06/27/2024 6:43 PM CDT Sexual Orientation Straight 06/27/2024 6: 43 PM CDT Obstetrics History Last Filed Vital Signs Vital Sign Reading Time Taken Comments Blood Pressure 107/71 06/24/2024 2:54 PM CDT Pulse 90 06/24/2024 2:54 PM CDT Temperature 37.1 C (98.7 F) 06/24/2024 2:54 PM CDT Respiratory Rate 22 06/24/2024 2:54 PM CDT Oxygen Saturation 96% 06/24/2024 2:54 PM CDT Inhaled Oxygen Concentration - - Weight 62.1 kg (137 lb) 06/24/2024 2:54 PM CDT Height 165.1 cm (5' 5) 06/24/2024 2:54 PM CDT Body Mass Index 22.8 06/24/2024 2:54 PM CDT Plan of Treatment Health Maintenance Due Date Last Done Comments Breast Cancer Screening-Mammogram 1960 Cervical Cancer Screening 1960 Colon Cancer Screening-Colonoscopy 1960 Depression Screening 1960 Hepatitis C Screening 1960 DTaP/Tdap/Td Vaccine (1 - Tdap) 07/02/1971 Hepatitis B Screening 1978 Regular Well Visit/Exam 18-64 1978 Pneumococcal vaccine <65 Aged Out 01/28/2023 No longer eligible based on patient's age to complete this topic Zoster Vaccine Completed 08/09/2023, 12/25/2021 Influenza Vaccine Completed 02/24/2024, , 04/02/2022 Covid-19 Vaccine Completed 02/25/2024, , 01/23/2023, Additional history exists Procedures Procedure Name Priority Date/Time Associated Diagnosis Comments AEROBIC AND ANAEROBIC CULTURE AND GRAM STAIN Routine 06/24/2024 3:26 PM CDT Cellulitis of second toe of right foot Open wound of second toe of right foot, initial encounter from Last 3 Months Results * Aerobic and anaerobic culture and gram stain Wound Toe, second, right (06/24/2024 3:26 PM CDT) Direct Specimen Exam Stain: No polymorphonuclear leukocytes seen. No organisms seen. Comment:Testing performed by : [facility], [address] [place] [address] Report Final Report: No growth JUSTINA REYES Comment:Testing performed by : [facility], [address] [place]., [address] Wound (Toe, second, right) 06/24/2024 3:26 PM CDT 06/25/2024 12:37 AM CDT Narrative JUSTINA REYES - 06/28/2024 11:49 AM CDT Specimen received on an ESwab. Testing performed by [facility] Laboratory ([phone]) Specimens submitted from normally sterile body sites will have all bacterial morphotypes identified. Specimens that contain grossly mixed beronica and/or are from body sites that are not normally sterile will be examined for Staphylococcus aureus, Pseudomonas aeruginosa, beta-hemolytic strep, vancomycin-resistant Enterococcus, Bacteroides, Parabacteroides, Clostridium perfringens and fungus. If any of these are isolated, the organism will be reported. Current interpretive data was last revised on 2019. Deborah Lara NP LAB MICROBIOLOGY - [facility] [place] Final Result JUSTINA REYES [id number] Department [place] [address] from Last 3 Months Insurance [facility] MEDICARE ADVANTAGE Care Teams Banking Representative Relationship Specialty Start Date End Date Patrick Bowden MD [address] [place] [address] PCP - General Internal Medicine 11/16/22
--- OUTSIDE RECORDS SUMMARY | 2024-07-15 14:15 | XMS_ITS | Referral Summary ---
Author Organization [facility] Address [address] [place] [address] Care Team Providers Care Drug Coordinator Name Role Phone Patrick Bowden MD Primary Care Provider [phone] Encounters Date Type Department Care Team Description 06/28/2024 Results Follow-Up [facility] at [address] [phone] Elizabeth Mariee PA Aerobic and anaerobic culture and gram stain Wound Toe, second, right 06/24/2024 3:26 PM CDT - 06/24/2024 11:59 PM CDT Hospital Encounter [address] [id number] Cellulitis of second toe of right foot; Open wound of second toe of right foot, initial encounter Discharge Disposition: Discharge to home or self care 06/24/2024 3:15 PM CDT Office Visit [facility] at [address] [phone] Deborah Lara NP Cellulitis of second toe of right foot (Primary Dx); Open wound of second toe of right foot, initial encounter 05/27/2024 2:00 PM CDT Infusion [facility] at [address] [phone] Rheumatoid arthritis involving multiple sites with positive rheumatoid factor (HCC) (Primary Dx) from Last 3 Months Allergies Active Allergy Reactions Criticality Noted Date [...] 04/23/2023 Assessment & Plan (03/18/2024 7:18 AM TRACK WATCHMAN): Patient is on immunosuppressive medication requiring intensive lab monitoring for medication safety. Assessment & Plan (10/10/2023 3:40 PM CDT): Long-term use of high-risk medication requiring regular monitoring. Labs ordered, no s/s of med tox or infection. Encouraged to work with PCP to make sure all recommended cancer screens and vaccinations are complete. Avoid live-vaccines unless reviewed with assistant store manager trainee first. Assessment & Plan (04/23/2023 6:51 AM CDT): Patient is on immunosuppressive medication requiring intensive lab monitoring for medication safety. Acute pain of right shoulder 12/20/2022 Assessment & Plan (12/20/2022 12:49 PM TRACK WATCHMAN): She has messaged with right neck and shoulder pain. Tried two rounds of oral steroids, muscle relaxer, no benefit. Presents today for right shoulder injection. Tolerated well. Seeing Pain Management as well, they will hopefully be able to address her neck if needed. Rheumatoid arthritis involvi ng multiple sites with positive rheumatoid factor 11/18/2022 Assessment & Plan (03/18/2024 7:18 AM TRACK WATCHMAN): Chronic, longstanding for about 30+ years. Stable [...] now. Assessment & Plan (12/20/2022 12:48 PM TRACK WATCHMAN): Chronic, longstanding for about 30+ years. Previously [...] she had labs due to transition between assistant store manager trainee. We will get orders rewritten, with the reloading dose. We will continue her steroid, leflunomide, daily meloxicam. She was advised to reach out with any flares. 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 Assessment & Plan (12/20/2022 6:58 AM TRACK WATCHMAN): She is currently on methylprednisolone about 8 [...] Date Resolved Date Neck pain 12/20/2022 12/20/2022 Immunizations Immunization Administration Dates Next Due Influenza, Quadrivalent, Spl it, Preservative Free, Intramuscular 01/23/2023,04/02/2022 Influenza, Trivalent, Preservative Free, Intramu scular 02/24/2024 Pneumococcal Conjugate Pcv20 01/28/2023 RSV, Bivalent, Protein Subun it Rsvpref, Diluent (Abrysvo) 02/25/2024 ZOSTER Recombinant 08/09/2023,12/25/2021 Social History Tobacco Use Types Packs/Day Years [...] on file Legal Sex Female 7:41 AM TRACK WATCHMAN Gender Identity Female 06/27/2024 6:43 PM CDT Sexual Orientation Straight 06/27/2024 6: 43 PM CDT Last Filed Vital Signs Vital Sign Reading [...] 06/24/2024 2:54 PM CDT Plan of Treatment Not on file Procedures Procedure Name Priority Date/Time Associated Diagnosis [...] No organisms seen. Comment:Testing performed by : [facility], [address] [place]., [address] Report Final Report: No growth JUSTINA REYES Comment:Testing performed by : [facility], [address] [place]., [address] Wound (Toe, second, right) 06/24/2024 3:26 PM CDT 06/25/2024 12:37 AM CDT Narrative JUSTINA REYES - 06/28/2024 11:49 AM CDT Specimen received on an ESwab. Testing performed by [facility]biology Laboratory ([phone]) Specimens submitted from normally sterile body sites [...] [facility] [place] Final Result JUST[facility] REYES [id number] Department [place] [address] from Last 3 Months Insurance [employer] [facility] [place] [employer] MEDIC[place] ADVANTAGE Care Teams Drug Coordinator Relationship Specialty Start Date End Date Patrick Bowden MD [address] [place] [address] PCP - General Internal Medicine 11/16/22
--- OUTSIDE RECORDS SUMMARY | 2024-07-15 14:15 | XMS_ITS | Encounter Summary ---
Author Organization [facility] Address [address] [place] [address] Phone Care Team Providers Care Inspector Publications Name Role Phone Patrick Bowden MD Primary Care Provider [phone] Zac Rojo MD Unavailable [phone] Ivon Smith APRN, [facility] Unavailable [phone] Reason for Visit * Reason Comments Medication Refill Encounter Details Date Type Department Care Team (Late st Contact Info) Description 06/22/2022 Refill [facility] - [place] [address] [place] [address] Patrick Bowden MD [address] [facility] [place] [address] Medication Refill Social History Tobacco [...] encounter Miscellaneous Notes * Telephone Encounter - Aisha Keen RN - 06/22/2022 8:51 AM CDT Medication failed the protocol, provider to review and approve the medication order if appropriate. Requested Prescriptions Pending Prescriptions Disp Refills traZODone (DESYREL) 150 MG Tablet [Pharmacy Med Name: TRAZODONE 150MG (HUNDRED- FIFTY) TAB] 60 Tablet 0 Sig: TAKE 2 TABLETS BY MOUTH EVERY NIGHT Serotonin Modulators (6 Month Refill Only) Protocol Failed - 06/22/2022 8:47 AM Failed - Has an encounter in the past 6 months with a depression or anxiety visit diagnosis Failed - Patient has established therapy with Serotonin Modulators for at least 6 months Passed - Visit with relevant provider in past 6 months or upcoming 90 days Recent Visits Date Type Provider Dept 04/02/22 Office Visit [facility] [place] Showing recent visits within past 182 days and meeting all other requirements Future Appointments Date Type Provider Dept 07/03/22 Appointment [facility] Showing future appointments within next 90 days and meeting all other requirements Passed - No PRN Use for Trazodone documented in this encounter Plan of Treatment Upcoming Encounters Date Type Department Care Team (Late st Contact Info) Description 08/21/2024 1:00 PM CDT Office Visit [facility] - Obstetrics & Gynecology [facility] [address] [place] [address] Ivon Smith, CHARTER DRIVER, MENTAL HEALTH PROGRAM DIRECTOR [address] [place] [address] 08/24/2024 10:30 AM CDT Office Visit [facility] - Internal Medicine [facility] [address] [place] [phone] Patrick Bowden MD [address] [place] [address] documented as of this encounter Visit Diagnoses Not on filedocumented in this encounter Additional Health Concerns Assessment Noted Time PHQ-9 Depression Total Score: 6 04/02/19 23 2:00 PM GUT SORTER documented as of this encounter Care Teams Inspector Publications Relationship Specialty Start Date End Date Patrick Bowden MD [address] [facility] [address] PCP - General Internal Medicine 04/02/22 Zac Rojo MD [address] [place] [address] Consulting Physician Obstetrics & Gynecology 06/19/24 Ivon Smith, CHARTER DRIVER, MENTAL HEALTH PROGRAM DIRECTOR [address] [place] [address] Nurse Practitioner Advanced Practice Nurse 07/09/24 documented as of this encounter
== END 2024-07-15 13:55 | disposition home or self-care (01) ==
PROVIDERS: PCP Internal Medicine; Visit Provider Pain Medicine Interventional Pain Medicine
DX: M51.369 Other intervertebral disc degeneration, lumbar region without mention of lumbar back pain or lower extremity pain (principal); M51.379 Other intervertebral disc degeneration, lumbosacral region without mention of lumbar back pain or lower extremity pain
CPT/HCPCS: 72100